=== PATIENT | male | born 1980 | race Caucasian/White ===

== ENCOUNTER 2019-10-20 09:37 | Emergency (ER) | payer OTHER, MEDICAID, SELFPAY ==
[2019-10-20 09:57] VITALS: BP 170/100; PULSE 84; RESP 16; TEMP 36.2; O2SAT 99; BMI 24.8
[2019-10-20] MEDS: LORazepam 0.5 MG TABLET 2 MG PO (11:19)
--- NOTE | 2019-10-20 11:32 | ED.PSYCH ---
HPI - Psych General Chief Complaint: Psychiatric Symptoms Stated Complaint: break down right now Time Seen by Provider: 10/20/19 11:12 Source: patient and family Mode of arrival: Family Vehicle History of Present Illness HPI Narrative: The patient is a 39-year-old male who came into the emergency department to be evaluated for depression. The patient states that he has been hearing voices that intermittently telling to hurt himself but also inform him to hurt others. The only person he wants to hurt is a friend that he thought was a friend in [place]. He has been seen by the psychiatrist before and was thought to be bipolar but no one has told him that he is definitely bipolar. The patient 1 week ago used methamphetamine. He does not report using any other drugs. He does not drink alcohol or smoke cigarettes. 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 He has no history of diabetes mellitus congenital heart disease or asthma. He states that intermittently he has thoughts of suicide in harming himself but has no specific plan. The patient's father committed suicide on October 13. He does not want to believe that his dad hurt himself. He states that he has low energy and no ambition. He has difficulty sleeping at night and is unable to fall asleep and then suddenly wakes up around 4 5:00 a.m. in the morning. He feels exhausted when he wakes up and that he has not rested when sleeping. He has been anorexic and has had a poor appetite. Related Data Previous Rx's Medication Instructions Recorded [id number] 4 drp OTIC QID #10 ml 03/18/16 lorazepam [Ativan] 0.5 mg PO TID PRN #20 tab 10/20/19 Allergies Allergy/AdvReac Type Severity Reaction Status Date / Time No Known Drug Allergies Allergy Verified 10/20/19 11:19 Review of Systems Review of Systems Narrative: All review of systems were negative except for those mentioned in the history of present illness. Patient History Social History Smoking Status: Former smoker Smoking Status: Former smoker tobacco type: cigarettes alcohol intake frequency: 0-2 drinks per day Substance Use Type: former substance user, marijuana and methamphetamine Exam Narrative Exam Narrative: PHYSICAL EXAM: CONSTITUTIONAL: Awake, Alert, Oriented, Coherent, Cooperative in NAD. Does not appear toxic or ill. He appears mildly agitated and was administered 2 mg of Ativan orally. HEAD: AT/NC EENT: PERRL, FROM of eyes, no discharge, Oral mucosa is moist and pink, posterior pharynx is without erythema or exudate. NECK: Supple, no obvious JVD, Trachea is midline without stridor, no palpable LN or masses. SPINE: No gross deformity, no palpable tenderness of the cervical, thoracic, lumbar or sacral spine. No CVA tenderness. THORAX: No deformity, retractions, chest wall tenderness, subcutaneous air or crepitice. LUNGS: Clear with symmetrical breath sounds without respiratory distress HEART: Normal heart tones, regular rhythm and rate without murmur. ABDOMEN: Soft, non-tender, normal bowel sounds without guarding, rebound, rigidity or palpable mass or organomegaly. EXTREMITIES: No edema, cyanosis, deformity or tenderness. SKIN: No rash, bruising, petechiae or purpura. NEURO: Awake, alert, oriented, conversive, cranial nerves II-XII are symmetrical and normal, moves all 4 extremities and is ambulatory Initial Vital Signs Initial Vital Signs: Vital Signs Temperature 97.2 F L 10/20/19 09:57 Pulse Rate 84 10/20/19 09:57 Respiratory Rate 16 10/20/19 09:57 Blood Pressure 170/100 H 10/20/19 09:57 Pulse Oximetry 99 10/20/19 09:57 Course Course Course Narrative: 1338 the patient was evaluated by the social service team here and feels that the patient is appropriate to go home on a safety plan. His mother feels as though she is able to take care of him. He does not have any plans on harming himself or harming anybody else. He is receptive to obtaining counseling as an outpatient. He will receive BHI P through his family physician and will be given the information for OT. He will be discharged. Orders Ordered: Discontinued Medications Lorazepam (Ativan) 2 mg PO NOW ONE Stop: 10/20/19 11:13 Last Admin: 10/20/19 11:19 Dose: 2 mg Documented by: ANURADHA Vital Signs Vital signs: Vital Signs - 8 hr 10/20/19 09:57 10/20/19 13:30 Temperature 97.2 F L Pulse Rate 84 86 Respiratory Rate 16 16 Blood Pressure 170/100 H Blood Pressure [Left Arm] 144/70 H Pulse Oximetry 99 98 MDM - Psych Lab Data Result diagrams: 10/20/19 11:27 10/20/19 11:27 Labs: Lab Results 10/20/19 10/20/19 10/20/19 Range/Units 11:27 11:27 11:27 WBC 8.1 (4.5-11.0) X10^3/uL RBC 5.22 (4.5-5.9) X10^6/uL Hgb 15.9 (13.5-17.5) g/dL Hct 45.8 (41-53) % MCV 87.7 (80-100) fL MCH 30.4 (26-34) PG MCHC 34.7 (30-36) % RDW 13.6 (11.6-14.8) % Plt Count 235 (150-400) X10^3/uL Neut % (Auto) 59.2 (50-75) % Lymph % (Auto) 27.6 (25-40) % Hubbard % (Auto) 10.3 (3-14) % Eos % (Auto) 2.0 (2-4) % Baso % (Auto) 0.9 (0-2) % Neut # (Auto) 4800 (5384-0523) /uL Lymph # (Auto) 2200 (5585-9289) /uL Hubbard # (Auto) 800 (0-900) /uL Eos # (Auto) 200 (0-450) /uL Baso # (Auto) 100 (0-100) /uL Sodium 137 (137-145) mmol/L Potassium 4.4 (3.4-5.1) mmol/L Chloride 103 (98-107) mmol/L Carbon Dioxide 23 (22-32) mmol/L BUN 17 (9-20) mg/dL Creatinine 0.96 (0.66-1.25) mg/dL Estimated GFR > 60.0 (>60) mL/min BUN/Creatinine Ratio 17.7 (6-22) Glucose 104 H (70-100) mg/dL Calcium 9.8 (8.4-10.2) mg/dL Total Bilirubin 0.8 (0.2-1.3) mg/dL AST 35 (17-59) IU/L ALT 64 H (<50) IU/L Alkaline Phosphatase 103 (38-126) U/L Total Protein 8.4 H (6.3-8.2) g/dL Albumin 4.9 (3.5-5.0) g/dL Globulin 3.5 (1.7-4.1) g/dL Albumin/Globulin Ratio 1.4 (1.0-2.8) TSH 1.31 (0.47-4.68) uIU/mL Salicylates < 1.0 (<20) mg/dL U Opiates 300ng/mL cut (Negative) Ur Oxycodone Screen (Negative) Urine Methadone Screen (Negative) Acetaminophen < 10 L (10-30) ug/mL Ur Barbiturates Screen (Negative) U Tricyclic Antidepress (Negative) Ur Phencyclidine Scrn (Negative) Ur Amphetamines Screen (Negative) U Methamphetamines Scrn (Negative) Ur MDMA Scrn (Ecstasy) (Negative) U Benzodiazepines Scrn (Negative) Urine Cocaine Screen (Negative) U Marijuana (THC) Screen (Negative) Ethyl Alcohol < 10 ( - 10) mg/dL 10/20/19 Range/Units 11:49 WBC (4.5-11.0) X10^3/uL RBC (4.5-5.9) X10^6/uL Hgb (13.5-17.5) g/dL Hct (41-53) % MCV (80-100) fL MCH (26-34) PG MCHC (30-36) % RDW (11.6-14.8) % Plt Count (150-400) X10^3/uL Neut % (Auto) (50-75) % Lymph % (Auto) (25-40) % Hubbard % (Auto) (3-14) % Eos % (Auto) (2-4) % Baso % (Auto) (0-2) % Neut # (Auto) (1165-9535) /uL Lymph # (Auto) (6409-1211) /uL Hubbard # (Auto) (0-900) /uL Eos # (Auto) (0-450) /uL Baso # (Auto) (0-100) /uL Sodium (137-145) mmol/L Potassium (3.4-5.1) mmol/L Chloride (98-107) mmol/L Carbon Dioxide (22-32) mmol/L BUN (9-20) mg/dL Creatinine (0.66-1.25) mg/dL Estimated GFR (>60) mL/min BUN/Creatinine Ratio (6-22) Glucose (70-100) mg/dL Calcium (8.4-10.2) mg/dL Total Bilirubin (0.2-1.3) mg/dL AST (17-59) IU/L ALT (<50) IU/L Alkaline Phosphatase (38-126) U/L Total Protein (6.3-8.2) g/dL Albumin (3.5-5.0) g/dL Globulin (1.7-4.1) g/dL Albumin/Globulin Ratio (1.0-2.8) TSH (0.47-4.68) uIU/mL Salicylates (<20) mg/dL U Opiates 300ng/mL cut Negative (Negative) Ur Oxycodone Screen Negative (Negative) Urine Methadone Screen Negative (Negative) Acetaminophen (10-30) ug/mL Ur Barbiturates Screen Negative (Negative) U Tricyclic Antidepress Negative (Negative) Ur Phencyclidine Scrn Negative (Negative) Ur Amphetamines Screen Negative (Negative) U Methamphetamines Scrn Negative (Negative) Ur MDMA Scrn (Ecstasy) Negative (Negative) U Benzodiazepines Scrn Negative (Negative) Urine Cocaine Screen Negative (Negative) U Marijuana (THC) Screen Positive H (Negative) Ethyl Alcohol ( - 10) mg/dL Point of Care Testing Glucose POC 85 Urine Dip Bedside Urine Glucose Negative Bedside Urine Bilirubin - Negative Bedside Urine Ketone - Negative Urine Specific [place] 1.015 Bedside Urine Occult Blood - Negative Bedside Urine pH 6.0 Bedside Urine Protein - Negative Bedside Urine Urobilinogen - Negative Bedside Urine Nitrite - Negative Bedside Urine Leukocytes - Negative Esterase Discharge Plan Departure Patient Disposition: Home Clinical Impression: Suicidal ideation Depression Qualifiers: Depression Type: reactive depression Qualified Code(s): F32.9 - Major depressive disorder, single episode, unspecified Discharge Date/Time: 10/20/19 13:57 Instructions: DI for Depression -- Adult Activity Restrictions/Additional Instructions: 1. Follow-up with Dr. Galvan to receive BHIP 2,. If any problems develop or your depression gets worse call OT for assistance 3. If the depression suddenly gets worse or out of control and you feel like you want to harm yourself or harm someone else return to the emergency department. 4. You and your family must lockup any objects that you may use to harm herself such as nods and guns and any other instruments. 5. For acute anxiety or agitation take the Ativan as prescribed; 0.5 mg three times per day. Prescriptions: New lorazepam [Ativan] 0.5 mg tablet 0.5 mg PO TID PRN (Reason: agitation) Qty: 20 RF: 0 No Action aubxcyos-iqlevoaqk-OP 10 ML drops,suspension 4 drp OTIC QID Qty: 10 RF: 0
[2019-10-20 11:41] LABS: Add Manual Diff / Slide Review NO; Basophils Absolute Auto 100 /uL (0-100); Basophils Percent Auto 0.9 % (0-2); Eosinophils Absolute Auto 200 /uL (0-450); Hematocrit 45.8 % (41-53); Hemoglobin 15.9 g/dL (13.5-17.5); Lymphocytes Absolute Auto 2200 /uL (1100-4500); Lymphocytes Percent Auto 27.6 % (25-40); Mean Corpuscular HGB Conc 34.7 % (30-36); Mean Corpuscular Hemoglobin 30.4 PG (26-34); Mean Corpuscular Volume 87.7 fL (80-100); Monocytes Absolute Auto 800 /uL (0-900); Monocytes Percent Auto 10.3 % (3-14); Neutrophils Absolute Auto 4800 /uL (1500-7000); Neutrophils Percent Auto 59.2 % (50-75); Platelet Count 235 X10^3/uL (150-400); Red Blood Cell Count 5.22 X10^6/uL (4.5-5.9); Red Cell Distribution Width 13.6 % (11.6-14.8); White Blood Cell Count 8.1 X10^3/uL (4.5-11.0)
[2019-10-20 11:56] LABS: Acetaminophen < 10 ug/mL (10-30); Alanine Aminotransferase 64 IU/L (<50); Albumin 4.9 g/dL (3.5-5.0); Albumin Globulin Ratio 1.4 (1.0-2.8); Alkaline Phosphatase 103 U/L (38-126); Aspartate Aminotransferase 35 IU/L (17-59); BUN Creatinine Ratio 17.7 (6-22); Bilirubin Total 0.8 mg/dL (0.2-1.3); Blood Urea Nitrogen 17 mg/dL (9-20); Calcium 9.8 mg/dL (8.4-10.2); Carbon Dioxide 23 mmol/L (22-32); Chloride 103 mmol/L (98-107); Estimated Glomerular Filt Rate > 60.0 mL/min (>60); Ethanol (ETOH) < 10 mg/dL; Globulin 3.5 g/dL (1.7-4.1); Glucose 104 mg/dL (70-100); HEMOLYSIS < 15 (0-50); Potassium 4.4 mmol/L (3.4-5.1); Salicylate < 1.0 mg/dL (<20); Sodium 137 mmol/L (137-145); Total Protein 8.4 g/dL (6.3-8.2)
[2019-10-20 12:26] LABS: Thyroid Stimulating Hormone 1.31 uIU/mL (0.47-4.68)
[2019-10-20 12:40] LABS: UR Morphine/Opiate cutoff 300 Negative (Negative); Ur Creatinine Normal (Normal); Ur Specific Gravity Normal (Normal); Urine Amphetamines Negative (Negative); Urine Barbiturates Negative (Negative); Urine Benzodiazepines Negative (Negative); Urine Cocaine Negative (Negative); Urine MDMA Negative (Negative); Urine Methadone Negative (Negative); Urine Methamphetamines Negative (Negative); Urine Oxycodone Negative (Negative); Urine Phencyclidine Negative (Negative); Urine Tetrahydrocannabinol Positive (Negative); Urine Tricyclic Antidepressant Negative (Negative); Urine pH Normal (Normal)
--- NOTE | 2019-10-20 12:59 | CM.SWNOTE ---
Emergency Department Social Work ED Psychiatric Symptoms Assessment Start: 10/20/19 09:56 Freq: Status: Active Protocol: Document 10/20/19 10:06 RLS (Rec: 10/20/19 10:12 RLS [id number]) Psychiatric Symptoms Assessment Symptoms/Complaint Feels Depressed Onset this week Duration Getting Worse History Of Same Yes Context Not Taking Psychiatric Medications Worsens With Nothing Associated Psychiatric Symptoms Auditory Hallucinations, Depression,Racing Thoughts Associated Symptoms Insomnia Details of Plan only plan is to harm the other person is to use a chain saw and cut arms off the person. reports he is mad at the person. he is depressed. no suicidal thoughts Level of Consciousness Alert,Appropriate,Awake, Follows Commands Patient Orientation Name,Age,Birthday,Month,Date, Year,Day of Week,Place, Situation Patient Behavior/Mood Cooperative Ability to Follow Directions Excellent Patient Cognition Impaired No Affect Description Depressed,Relaxed Patient Appearance Well Groomed Hallucination Type Auditory Delusion Description Not Present Thought Process: Normal Depressive Symptoms Difficulty Concentrating, Difficulty Sleeping,Difficulty Making Decisions,Hopelessness ,Insomnia,Unhappiness Major Depressive Episode Yes Feelings of Hopelessness Yes Suicidal Ideation None,Harm to Others Suicide Plan No Plan Homicidal Ideation Harm to Others Homicidal Plan see above. pt has no car to travel to [place] to harm this person Nausea/Vomiting None METAL BONDING ASSEMBLER - Hospital Aide Assessment Start: 10/20/19 12:14 Freq: Status: Active Protocol: Document 10/20/19 12:15 [facility] (Rec: 10/20/19 12:46 [facility] [id number]) METAL BONDING ASSEMBLER/Hospital Aide Assessment Start date 10/20/19 Visit Start Time 10:30 End date 10/20/19 Visit End Time 12:00 Total time Care Management spent on 90 patient visit-in minutes Presenting Problem Patient presents insomnia and hearing voices. Precipitating Event(s) Patient discontinued use of meth and marijuana 3 weeks ago . Patient's father committed suicide 1 week ago. Current Behavioral Health Provider(s) None current Include Facility, Provider, Ph. # Psych. Hx Mental Health and Chemical Patient has a diagnosis of Dependency Biploar, has not had any medication for this since 2014 . Patient used meth for a year between 2013 and 2014, discontinued use of meth between 2015-June 2019, relapsed in June 2019, and discontinued use of meth 3 weeks ago. Patient describes discontinuing use of marijuana 3 weeks ago. Family Hx of Behavioral Abuse None reported. Psychiatric Hospitalizations (date(s)/ Patient denies previous location) psychiatric hospitalization. Support System(s) Patient was brought in by mother and brother. Patient lives with mother and brother. Patient and family are actively involved in [facility] , and have many people from their mosque community who have offered and given support . 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 Legal Matters - Outstanding Issues Patient reports signficant credit card debt from recent meth relapse Orientation (Person/Place/Time) Oriented to person time and place. Affect Appropriate for context. Calm and cooperative throughout interactions. Thought Content - Specify/Describe Patient described hearing Obsessions, Delusions, Hallucinations voices. Patient described a former roommate who he used to use meth with as communicating with him telepathically. Patient states that his former roommate was telling him to do things that were dangerous and could hurt other people such as drive recklessly. Patient continued to state that the voices were trying to make [him] do things that [ he] doesn't want to do and that he was getting angry. Patient stated that he had no want to harm/kill himself or anyone else, but was worried that once he got angry he would not be able to control it. Thought Processes (Lfvmkcm-Tydbzsrk-Hxud Coherent and goal directed Fogvjsyz-Jwobgaya-Yrphkedhjy- Bbafxutxgklkcf-Drkqgwh-Rxerufquhcdj- Thought Blocking) Speech (Qwsvkq-Xqeh-Kyqenzh-Rapid-Soft- Normal Loud-Pressured) Motor (Frihzq-Kirmdjptp-Dbfg-Other) Normal Insight (Present-Partially Present- Impaired Impaired) Judgement (Intact-Impaired) Impaired. Impulse Control (Adequate-Impaired) Impaired. Memory (Jlcxeliet-Cdghfg-Artpwx, Intact Impaired-Intact) Concentration (Intact-Impaired) Impaired, Patient states he had been having difficulty sleeping and reports difficultly maintianing focus. Attention (Intact-Impaired) Intact Behavior (Appropriate-Inappropriate) Appropriate Additional Comment Patient did experience an escalation when inpatient hospitalization was recognized and admitted to feeling an increase in his level of anxiety. Welcomed and responded well immediately to anti-anxiety medication. Suicidal Ideation (Plan) No Homicidal Ideation (Plan) No Comment Admits to destructive thoughts towards himself and others. Patient acknowledges that his destructive thoughts toward others come from a place of anger, and said that he would never hurt anyone. Patient admits thinking about wanting to be but denies any plan or thoughts of killing himself. Intervention METAL BONDING ASSEMBLER assessment- patient has experienced the recent suicide of his father, recent discontinuation of use of meth and marijuana and is currently hearing voices that are instructing patient to do things that patient states he does not want to do. Patient has dx of Bipolar, and has not had medication for this since 2013. Patient is currently living with mother, who expressed that she doesn't feel that she is able to keep him safe at home. Mother said there were guns in the home, and all but one were locked up , and did not express willingness to put the gun that was not locked into the safe. METAL BONDING ASSEMBLER suggested inpatient mental health for stabilization, medication, and group. Family and patient agreeable to plan. RA Plan Seeking inpatient stabilization.
[2019-10-20 13:30] VITALS: BP 144/70; PULSE 86; RESP 16; O2SAT 98
--- NOTE | 2019-10-20 13:41 | PC.NURSE ---
Family at bedside.
--- NOTE | 2019-10-20 13:44 | PC.NURSE ---
Patient is talking with family.
--- NOTE | 2019-10-20 13:46 | PC.NURSE ---
Family is with patient. Patient doesn't need anything at this time.
--- NOTE | 2019-10-20 13:47 | CM.SWNOTE ---
CRYPTOLOGIC TECHNICIAN TECHNICAL Note Patient agreeable to CRYPTOLOGIC TECHNICIAN TECHNICAL calling inpatient hospitals to find bed. [facility] in [place] had an available bed. Patient agreeable to care at [facility] for inpatient mental health stabilization. Current Patient and family grab CRYPTOLOGIC TECHNICIAN TECHNICALMiroslava Jarrell and discuss wanting to leave the ED and not do inpatient stabilization. Patient and mother stated multiple times that being in the ED was too much, and patient insisted that he was not hearing the voices. Patient said he felt better following discussion and a blessing from two of his priests and mother states she felt safe caring for patient at home until patients appt. with PCP on 10/23. CRYPTOLOGIC TECHNICIAN TECHNICALMiroslava Jarrell and STERLING Prince discussed safety planning with Patient and mother. director of enrollment discussed that family had recently endured a signficant trauma, and that it is not uncommon for strong thoughts to manifest suddenly. director of enrollment assessed for gun risk and discussed locking up the gun that was not in the safe. Mother said she would do this. director of enrollment assessed for sharp objects and other things that could be a danger. During this assessment, mother states with a smile you mean like all of our machetes? CRYPTOLOGIC TECHNICIAN TECHNICAL reminded family that because of the recent by suicide of patient's father, it is very important to take extra precautions with all potential weapons. Mother asked if patient could be written a prescription for Ativan, as this medication was helpful today in ED for director of enrollment spoke with Dr. Ruffin about this and expressed belief that this would help him stay safe at home. director of enrollment discussed BHIP, and patient expressed interest. director of enrollment discussed having patient and his mother mention BHIP in meeting with PCP on 10/23. A reminder of this will be added to Dr. Ruffin's discharge note. director of enrollment discussed [facility] and [facility] crisis line, and gave patient's mother the phone number. Patient's mother programmed number into phone while director of enrollment were in room. Patient denies any thoughts of wanting to harm or kill himself or others. Patient said he likes to go for walks in nature to help himself de-escalate should strong feelings or thoughts arise. Patient will be discharged to care of mother 10/20/19. STERLING Soto
[2019-10-20 13:56] VITALS: BP 137/67; PULSE 86; RESP 16; TEMP 36.4; O2SAT 98
== END 2019-10-20 13:57 | disposition home or self-care (01) ==
PROVIDERS: Emergency Provider Emergency Medicine
DX: R45.851 Suicidal ideations (principal); F32.9 Major depressive disorder, single episode, unspecified
CPT/HCPCS: 80053; 80305; 80320; 80329; 81003; 82962; 84443; 85025; 99284; G0480

== ENCOUNTER → 2019-10-23 15:22 | Outpatient (CLI) | payer OTHER, MEDICAID, SELFPAY ==
[2019-10-23 18:54] LABS: UR Morphine/Opiate cutoff 300 Negative (Negative); Ur Creatinine Normal (Normal); Ur Specific Gravity Normal (Normal); Urine Amphetamines Negative (Negative); Urine Barbiturates Negative (Negative); Urine Benzodiazepines Negative (Negative); Urine Cocaine Negative (Negative); Urine MDMA Negative (Negative); Urine Methadone Negative (Negative); Urine Methamphetamines Negative (Negative); Urine Oxycodone Negative (Negative); Urine Phencyclidine Negative (Negative); Urine Tetrahydrocannabinol Positive (Negative); Urine Tricyclic Antidepressant Negative (Negative); Urine pH Normal (Normal)
== END ==
PROVIDERS: Visit Provider Family Medicine
DX: F15.10 Other stimulant abuse, uncomplicated (principal)
CPT/HCPCS: 80305

== ENCOUNTER → 2022-08-25 11:33 | Outpatient (CLI) | payer OTHER, MEDICAID, SELFPAY ==
[2022-08-25 13:58] LABS: Hemoglobin A1C% w Est Avg Glu 5.3 % (4.0-6.0)
[2022-08-25 14:06] LABS: Alanine Aminotransferase 117 IU/L (<50); Alkaline Phosphatase 102 U/L (38-126); Aspartate Aminotransferase 50 IU/L (17-59); BUN Creatinine Ratio 9.3 (6-22); Bilirubin Total 0.8 mg/dL (0.2-1.3); Blood Urea Nitrogen 12 mg/dL (9-20); Calcium 9.8 mg/dL (8.4-10.2); Carbon Dioxide 27 mmol/L (22-32); Chloride 101 mmol/L (98-107); Cholesterol 221 mg/dL (140-199); Estimated Glomerular Filt Rate > 60 mL/min (>60); Glucose 87 mg/dL (70-100); HDL Cholesterol 40 mg/dL (40-60); HEMOLYSIS < 15 (0-50); Potassium 4.7 mmol/L (3.4-5.1); Sodium 142 mmol/L (137-145); Total Protein 8.9 g/dL (6.3-8.2)
[2022-08-25 14:08] LABS: LDL Cholesterol Calculated 135 mg/dL (<100); Triglycerides 231 mg/dL (35-150)
[2022-08-27 16:37] LABS: Albumin Globulin Ratio 1.3 (1.0-2.8); Globulin 3.9 g/dL (1.7-4.1)
== END ==
PROVIDERS: PCP Family Medicine; Referring Provider Family Medicine; Visit Provider Family Medicine
DX: F19.10 Other psychoactive substance abuse, uncomplicated (principal); F32.9 Major depressive disorder, single episode, unspecified; E78.5 Hyperlipidemia, unspecified; R73.9 Hyperglycemia, unspecified
CPT/HCPCS: 36415; 80053; 80061; 83036

== ENCOUNTER → 2022-10-08 13:17 | Outpatient (CLI) | payer OTHER, MEDICAID, SELFPAY ==
[2022-10-08 14:06] LABS: Alanine Aminotransferase 94 IU/L (<50); Albumin 4.7 g/dL (3.5-5.0); Albumin Globulin Ratio 1.2 (1.0-2.8); Alkaline Phosphatase 87 U/L (38-126); Aspartate Aminotransferase 41 IU/L (17-59); BUN Creatinine Ratio 11.5 (6-22); Bilirubin Total 0.7 mg/dL (0.2-1.3); Blood Urea Nitrogen 13 mg/dL (9-20); Carbon Dioxide 24 mmol/L (22-32); Chloride 100 mmol/L (98-107); Estimated Glomerular Filt Rate > 60 mL/min (>60); Globulin 3.9 g/dL (1.7-4.1); Glucose 112 mg/dL (70-100); HEMOLYSIS < 15 (0-50); Sodium 135 mmol/L (137-145); Total Protein 8.6 g/dL (6.3-8.2)
== END ==
PROVIDERS: PCP Family Medicine; Referring Provider Family Medicine; Visit Provider Family Medicine
DX: I10 Essential (primary) hypertension (principal)
CPT/HCPCS: 36415; 80053

== ENCOUNTER → 2023-08-20 11:07 | Outpatient (CLI) | payer OTHER, MEDICAID, SELFPAY | PROVIDERS: PCP Family Medicine; Visit Provider Nurse Practitioner Family | DX: T14.8XXA Other injury of unspecified body region, initial encounter (principal) | CPT/HCPCS: 87070; 87075; 87077; 87186; 87205 ==

== ENCOUNTER → 2024-04-25 11:29 | Outpatient (CLI) | payer OTHER, MEDICAID, SELFPAY ==
[2024-04-25 12:26] LABS: Alanine Aminotransferase 65 IU/L (<50); Albumin 4.8 g/dL (3.5-5.0); Albumin Globulin Ratio 1.4 (1.0-2.8); Alkaline Phosphatase 106 U/L (38-126); Aspartate Aminotransferase 35 IU/L (17-59); BUN Creatinine Ratio 9.8 (6-22); Bilirubin Total 0.7 mg/dL (0.2-1.3); Blood Urea Nitrogen 14 mg/dL (9-20); Calcium 9.7 mg/dL (8.4-10.2); Carbon Dioxide 19 mmol/L (22-32); Chloride 103 mmol/L (98-107); Cholesterol 203 mg/dL (140-199); Estimated Glomerular Filt Rate > 60 mL/min (>60); Globulin 3.4 g/dL (1.7-4.1); Glucose 96 mg/dL (70-100); HDL Cholesterol 40 mg/dL (40-60); HEMOLYSIS < 15 (0-50); LDL Cholesterol Calculated 113 mg/dL (<100); Sodium 135 mmol/L (137-145); Total Protein 8.2 g/dL (6.3-8.2); Triglycerides 248 mg/dL (35-150)
[2024-04-25 12:42] LABS: Hemoglobin A1C% w Est Avg Glu 4.9 % (4.0-6.0)
== END ==
PROVIDERS: PCP Family Medicine; Referring Provider Family Medicine; Visit Provider Family Medicine
DX: I10 Essential (primary) hypertension (principal); E66.9 Obesity, unspecified
CPT/HCPCS: 36415; 80053; 80061; 83036

== ENCOUNTER → 2024-07-03 14:49 | Outpatient (CLI) | payer OTHER, MEDICAID, SELFPAY | PROVIDERS: PCP Family Medicine; Referring Provider Physician Assistant Medical; Visit Provider Physician Assistant Medical | DX: L72.3 Sebaceous cyst (principal) | CPT/HCPCS: 87070; 87075; 87205 ==

== ENCOUNTER → 2025-05-02 08:54 | Outpatient (CLI) | payer OTHER, SELFPAY ==
[2025-05-02 09:59] LABS: Hemoglobin A1C% w Est Avg Glu 5.2 % (4.0-6.0)
== END ==
PROVIDERS: PCP Family Medicine; Referring Provider Family Medicine; Visit Provider Family Medicine
DX: E66.9 Obesity, unspecified (principal)
CPT/HCPCS: 36415; 83036

== ENCOUNTER → 2025-06-29 08:46 | Outpatient (CLI) | payer OTHER, SELFPAY ==
[2025-06-29 09:36] LABS: Influenza A - CEPHEID Flu A NEGATIVE (NEGATIVE); Influenza B - CEPHEID Flu B NEGATIVE (NEGATIVE)
[2025-06-29 12:17] LABS: COVID-19 CEPHEID 4-PLEX PCR Negative (Negative)
== END ==
PROVIDERS: PCP Family Medicine; Visit Provider Nurse Practitioner Family
DX: R11.10 Vomiting, unspecified (principal)
CPT/HCPCS: 87637; 93010

== ENCOUNTER 2025-06-29 09:02 | Inpatient (IN) | payer OTHER, SELFPAY ==
[2025-06-29] VITALS (24 sets, daily range): BP systolic 124–182; BP diastolic 66–98; PULSE 90–144; RESP 14–40; TEMP 36.2–37.1; O2SAT 92–95; BMI 37.7; BMI 38.2
[2025-06-29] MEDS: ONDANSETRON 4 MG/2 ML INJ IV (09:11)
--- NOTE | 2025-06-29 09:11 | EKG_ITS ---
[address] [address] [address] [address] Test Date: 2025-06-29 Pat Name: Louis Oconnor Department: Room: Gender: Male Demand Generation Manager: OSBALDO : 1980 Requested By: Order Number: [id number] Reading MD: Tr Vasquez MD Measurements Intervals [place] Rate: 120 P: 29 AR: 128 QRS: 8 QRSD: 96 T: 136 QT: 336 QTc: 474 Interpretive Statements Sinus tachycardia Possible Left atrial enlargement Left ventricular hypertrophy with repolarization abnormality ( R in aVL ) Electronically Signed On 06-29-2025 9:29:19 PST by rT Vasquez MD
--- NOTE | 2025-06-29 09:15 | DI.CT.S_ITS ---
PROCEDURE: CT ABDOMEN PELVIS W CON INDICATIONS: Nausea vomiting, diarrhea, abdominal pain TECHNIQUE: After the administration of intravenous contrast, axial sections acquired from the lung bases to the pubic symphysis. Coronal and sagittal reformats were performed. For radiation dose reduction, the following was used: automated exposure control, adjustment of mA and/or kV according to patient size. COMPARISON: None. FINDINGS: Lower Chest: Small bibasilar pleural effusions ABDOMEN: Liver: The liver is diffusely decreased in attenuation without focal mass lesion. Small amount of perihepatic free fluid Gallbladder: No radiopaque gallstones or wall thickening. Biliary ducts: No biliary dilation. Pancreas: Pancreatic swelling and edema involving the pancreatic tail with peripancreatic unorganized fluid Spleen: Size is within normal limits. Adrenal Glands: No adrenal nodules. Kidneys and Ureters: No hydronephrosis. No solid mass. No complex renal cystic lesion which requires follow up. Stomach and Bowel: Normal colonic caliber, without significant wall thickening. Peritoneum: No abnormal intraperitoneal fluid. No free air. Ventral Wall: No significant ventral hernia. Abdominal Nodes: No retroperitoneal or mesenteric adenopathy by size criteria. Vessels: Aorta and inferior vena cava are normal in size. PELVIS: Pelvic Organs: Unremarkable. Bladder: No bladder wall thickening, accounting for underdistention. Pelvic Nodes: No enlarged lymph nodes. Miscellaneous: No inguinal hernias are seen. Moderate free fluid in pelvis Bones: No aggressive osseous abnormality. IMPRESSION: Acute pancreatitis with moderate free fluid in the pelvis. No organized pseudocyst. Approved by: Oscar Ramirez M.D. on 06/29/2025 at 9:30
--- NOTE | 2025-06-29 09:18 | ED_ITS ---
HPI - Abdominal Pain General Chief Complaint: Abdominal Pain Stated Complaint: [facility]: vomiting 3days, dehydrated, dark urine Time Seen by Provider: 06/29/25 09:09 Source: patient Mode of arrival: Ambulatory History of Present Illness HPI narrative: 45 years old male with history of hypertension came in today complaining of persistent nausea vomiting since 06/26/2025 and diarrhea in the last 2 days with generalized abdominal pain, decreased oral intake, decreased urine output, dark urine, generalized weakness. He denied any fever, runny nose, sore throat, coughing, chest pain, shortness of breath, dysuria, blood in the urine, dizziness, loss of consciousness, black stool, blood in the stool, previous abdominal surgery. He denied drinking alcohol but Vaping marijuana. He denied current abdominal pain. Related Data Home Medications ?Medication ?Instructions ?Recorded ?Confirmed hydroxyzine pamoate 25 mg capsule 25 mg PO BID 4 06/29/25 olanzapine 15 mg tablet 15 mg PO ONCE PM 07/03/24 fluoxetine 20 mg tablet 20 mg PO DAILY 12/11/2406/09 Previous Rx's ?Medication ?Instructions ?Recorded fluoxetine 20 mg capsule See Rx Instructions .Route 0 12/27/22 .COMPLEX #90 caps buspirone 15 mg tablet 15 mg PO 3XD #270 tabs 05/09 trazodone 100 mg tablet See Rx Instructions .Route 1 08/27/23 .COMPLEX #90 tabs lisinopril 40 mg tablet See Rx Instructions .Route 0 12/10/24 .COMPLEX #90 tabs hydrochlorothiazide 25 mg tablet See Rx Instructions . Route 05/31/25 .COMPLEX #90 tabs Allergies Allergy/AdvReac Type Severity Reaction Status Date / Time No Known Drug Allergies Allergy Verified 06/29/25 09:08 Review of Systems Review of Systems Narrative: Positive for nausea vomiting diarrhea, abdominal pain, decreased urine output, decreased oral intake, generalized weakness. Negative for fever, runny nose, sore throat, coughing, dizziness, loss of consciousness, chest pain, shortness of breath, black stool, blood in the stool. Patient History Medical History (Updated 06/29/25 @ 11:17 by Nazanin Trevizo MD) Primary hypertension Substance abuse Family History Brother Diabetes mellitus Social History Smoking Status: Unknown if ever smoked Smoking Status: Unknown if ever smoked tobacco type: cigarettes alcohol intake frequency: 0-2 drinks per day Exam Narrative Exam Narrative: GENERAL: Alert awake. Appear weak. No acute distress. HEAD: Atraumatic. Normocephalic. NECK: Trachea midline. Non tender CARDIOVASCULAR: Tachycardia. Regular rhythm without murmurs, gallops, or rubs. RESPIRATORY: Clear to auscultation. Breath sounds equal bilaterally. No wheezes, rales, or rhonchi. GASTROINTESTINAL: Generalized mild tenderness on palpation abdomen without guarding or rebound or tenderness. Mild distention. EXTREMITIES: No edema or joint tenderness. BACK: Nontender without deformity or crepitance. No flank tenderness. NEURO: AOx3. SKIN: No rash or erythema of visible areas Initial Vital Signs Initial Vital Signs: Vital Signs Temperature 98.7 F 06/29/25 09:03 Pulse Rate 137 H 06/29/25 09:03 Respiratory Rate 14 06/29/25 09:03 Blood Pressure 169/98 H 06/29/25 09:03 Pulse Oximetry 95 06/29/25 09:03 Oxygen Delivery Method Room Air 06/29/25 09:03 Course Orders Ordered: ED Orders 06/29/25 09:02 ETOH [Ethanol (ETOH)] Stat 06/29/25 09:08 EKG-12 Lead Stat 06/29/25 09:15 CT abdomen pelvis w con Stat 06/29/25 09:25 Complete Blood Count AUTO DIFF Stat Comprehensive Metabolic Panel Stat Lipase Stat Magnesium Stat Sodium Chloride (Hypertonic Saline 3%) 100 mls @ 20 mls/hr IV NOW ONE Stop: 06/29/25 15:01 Last Admin: 06/29/25 10:22 Dose: 20 mls/hr Documented By: DIONNA Magnesium Sulfate (Magnesium Sulfate) 4 gm in 100 mls @ 25 mls/hr IV NOW ONE Stop: 06/29/25 14:01 Last Admin: 06/29/25 10:14 Dose: 25 mls/hr Documented By: DIONNA Co-signed By: SAUNDRA Ondansetron HCl (Ondansetron 4 Mg/2 Ml Inj) 4 mg IV NOW PRN PRN Reason: Nausea And Vomiting Last Admin: 06/29/25 09:11 Dose: 4 mg Documented By: RB Ondansetron HCl (Ondansetron 4 Mg Odt) 4 mg PO NOW PRN PRN Reason: Nausea And Vomiting Discontinued Medications Lactated Ringer's (Lactated Ringers) 1,000 mls @ 1,000 mls/hr IV BOLUS ONE Stop: 06/29/25 10:15 Last Infusion: 06/29/25 11:01 Dose: Infused Documented By: Admin: 06/29/25 09:30 Dose: 1,000 mls/hr Documented By: RB Sodium Chloride (Normal Saline 0.9%) 500 mls @ 1,000 mls/hr IV BOLUS ONE Stop: 06/29/25 10:32 Last Admin: 06/29/25 10:15 Dose: Not Given Documented By: SAUNDRA(2) Vital Signs Vital signs: Vital Signs - 8 hr 06/29/25 09:03 06/29/25 09:05 06/29/25 09:06 Temperature 98.7 F Pulse Rate 137 H 143 H 144 H Respiratory Rate 14 Blood Pressure 169/98 H Pulse Oximetry 95 95 94 Oxygen Delivery Method Room Air 06/29/25 09:06 06/29/25 09:30 06/29/25 09:30 Temperature Pulse Rate 111 H Respiratory Rate Blood Pressure 169/98 H 152/92 H Pulse Oximetry Oxygen Delivery Method 06/29/25 10:00 06/29/25 10:30 06/29/25 11:00 Temperature Pulse Rate 90 93 H 95 H Respiratory Rate 32 H 31 H 32 H Blood Pressure Pulse Oximetry 95 95 Oxygen Delivery Method MDM - Abdominal Pain Lab Data 06/29/25 09:25 06/29/25 09:25 Labs: Lab Results 06/29/25 06/29/25 Range/Units 09:02 09:25 WBC 29.3 H (4.5-11.0) X10^3/uL RBC 5.50 (4.5-5.9) X10^6/uL Hgb 15.8 (13.5-17.5) g/dL Hct 44.5 (41-53) % MCV 80.8 (80-100) fL MCH 28.7 (26-34) PG MCHC 35.5 (30-36) % RDW 13.8 (11.6-14.8) % Plt Count 262 (150-400) X10^3/uL Neut % (Auto) Not Reportable Lymph % (Auto) Not Reportable [place] % (Auto) Not Reportable Eos % (Auto) Not Reportable Baso % (Auto) Not Reportable Lymph # (Auto) Not Reportable [place] # (Auto) Not Reportable Baso # (Auto) Not Reportable Total Counted 100 Seg Neutrophils % 76.0 H (38-70) % Band Neutrophils % 10.0 H (3-7) % Lymphocytes % (Manual) 8.0 L (25-45) % Monocytes % (Manual) 6.0 (2-11) % Neutrophils # (Manual) 16732 H (5257-2783) /uL RBC Morphology Normal morphology Sodium 114 L* (137-145) mmol/L Potassium 3.6 (3.4-5.1) mmol/L Chloride 81 L (98-107) mmol/L Carbon Dioxide 21 L (22-32) mmol/L BUN 18 (9-20) mg/dL Creatinine 1.13 (0.66-1.25) mg/dL Estimated GFR > 60 (>60) mL/min BUN/Creatinine Ratio 15.9 (6-22) Glucose 140 H (70-99) mg/dL Calcium 7.5 L (8.4-10.2) mg/dL Magnesium 1.1 L (1.6-2.3) mg/dL Total Bilirubin 2.8 H (0.2-1.3) mg/dL AST 35 (17-59) IU/L ALT 30 (<50) IU/L Alkaline Phosphatase 67 (38-126) U/L Total Protein 7.8 (6.3-8.2) g/dL Albumin 4.2 (3.5-5.0) g/dL Globulin 3.6 (1.7-4.1) g/dL Albumin/Globulin Ratio 1.2 (1.0-2.8) Lipase 376 H (23-300) U/L Ethyl Alcohol < 10 (<10) mg/dL Imaging Data CT scan - abdomen/pelvis: Radiologist's Impression: PROCEDURE: CT ABDOMEN PELVIS W CON INDICATIONS: Nausea vomiting, diarrhea, abdominal pain TECHNIQUE: After the administration of intravenous contrast, axial sections acquired from the lung bases to the pubic symphysis. Coronal and sagittal reformats were performed. For radiation dose reduction, the following was used: automated exposure control, adjustment of mA and/or kV according to patient size. COMPARISON: None. FINDINGS: Lower Chest: Small bibasilar pleural effusions ABDOMEN: Liver: The liver is diffusely decreased in attenuation without focal mass lesion. Small amount of perihepatic free fluid Gallbladder: No radiopaque gallstones or wall thickening. Biliary ducts: No biliary dilation. Pancreas: Pancreatic swelling and edema involving the pancreatic tail with peripancreatic unorganized fluid Spleen: Size is within normal limits. Adrenal Glands: No adrenal nodules. Kidneys and Ureters: No hydronephrosis. No solid mass. No complex renal cystic lesion which requires follow up. Stomach and Bowel: Normal colonic caliber, without significant wall thickening. Peritoneum: No abnormal intraperitoneal fluid. No free air. Ventral Wall: No significant ventral hernia. Abdominal Nodes: No retroperitoneal or mesenteric adenopathy by size criteria. Vessels: Aorta and inferior vena cava are normal in size. PELVIS: Pelvic Organs: Unremarkable. Bladder: No bladder wall thickening, accounting for underdistention. Pelvic Nodes: No enlarged lymph nodes. Miscellaneous: No inguinal hernias are seen. Moderate free fluid in pelvis Bones: No aggressive osseous abnormality. IMPRESSION: Acute pancreatitis with moderate free fluid in the pelvis. No organized pseudocyst. Approved by: Oscar Ramirez M.D. on 06/29/2025 at 9:30 ECG Data Interpretation: EKG shows sinus tachycardia 120 beats per minute with inverted T-waves in 1, aVL, V2, V3. No prolonged QT. [facility] Narrative Medical decision making narrative: 45 years old male with history of hypertension came in today complaining of persistent nausea vomiting since 06/26/2025 and diarrhea in the last 2 days with generalized abdominal pain, decreased oral intake, decreased urine output, dark urine, generalized weakness. He denied any fever, runny nose, sore throat, coughing, chest pain, shortness of breath, dysuria, blood in the urine, dizziness, loss of consciousness, black stool, blood in the stool, previous abdominal surgery. He denied drinking alcohol but Vaping marijuana. He denied current abdominal pain. On exam showed Generalized mild tenderness on palpation abdomen without guarding or rebound or tenderness. Mild distention. His CV exam showed tachycardia without murmur. His lung exam was normal. He is alert oriented x4 without acute distress. His CBC showed WBC 29.3 otherwise normal CBC. His CMP shows sodium 114 chloride 81 bicarb 21 calcium 7.5 magnesium 1.1 total bilirubin 2.8 otherwise normal CMP. His lipase was 376. His CT scan abdomen and pelvis showed acute pancreatitis with moderate free fluid in the pelvis without organized pseudocyst. I discussed the case with our hospitalist and the patient was accepted to the hospital ICU. He was started on IV normal saline, 3% sodium chloride, magnesium supplement. Later I discussed the case with another hospitalist group and recommended transfer to higher level of care for severe hyponatremia, leukocytosis, pancreatitis. Discharge Plan Departure Patient Disposition: Admitted As Inpatient Clinical Impression: Acute hyponatremia, Hypomagnesemia, Hypocalcemia, Sinus tachycardia Admit Date/Time: 06/29/25 11:20 Admit Provider: Herrera Mcknight
[2025-06-29] MEDS: LACTATED RINGERS 1,000 ML 1000 ML IV (09:30)
[2025-06-29 09:39] LABS: Add Manual Diff / Slide Review YES; Hematocrit 44.5 % (41-53); Hemoglobin 15.8 g/dL (13.5-17.5); Mean Corpuscular HGB Conc 35.5 % (30-36); Mean Corpuscular Hemoglobin 28.7 PG (26-34); Mean Corpuscular Volume 80.8 fL (80-100); Platelet Count 262 X10^3/uL (150-400)
[2025-06-29 09:49] LABS: Magnesium 1.1 mg/dL (1.6-2.3)
[2025-06-29 09:50] LABS: Alanine Aminotransferase 30 IU/L (<50); Albumin 4.2 g/dL (3.5-5.0); Albumin Globulin Ratio 1.2 (1.0-2.8); Alkaline Phosphatase 67 U/L (38-126); Blood Urea Nitrogen 18 mg/dL (9-20); Calcium 7.5 mg/dL (8.4-10.2); Carbon Dioxide 21 mmol/L (22-32); Chloride 81 mmol/L (98-107); Estimated Glomerular Filt Rate > 60 mL/min (>60); Globulin 3.6 g/dL (1.7-4.1); Glucose 140 mg/dL (70-99); HEMOLYSIS 16 (0-50); Lipase 376 U/L (23-300); Potassium 3.6 mmol/L (3.4-5.1); Total Protein 7.8 g/dL (6.3-8.2)
[2025-06-29 09:50] LABS: Ethanol (ETOH) < 10 mg/dL (<10)
[2025-06-29 09:55] LABS: Sodium 114 mmol/L (137-145)
[2025-06-29] MEDS: MAGNESIUM SULFATE 4 GM/100 ML PIGGYBACK IV (10:14)
[2025-06-29 10:22] LABS: Band Neutrophils Percent 10.0 % (3-7); Lymphocytes Percent Manual 8.0 % (25-45); Monocytes Percent Manual 6.0 % (2-11); Neutrophils Absolute Manual 25198 /uL (3000-5900); RBC Morphology Normal Morphology; Segmented Neutrophils Percent 76.0 % (38-70); Total Cells Counted 100
[2025-06-29] MEDS: SODIUM CHLORIDE 3 % 100 ML 20 ML IV (10:22)
--- NOTE | 2025-06-29 13:56 | PM.HP.1 ---
History of Present Illness History of Present Illness Date Patient Seen: 06/29/25 Time Patient Seen: 14:10 Chief complaint: [facility]: vomiting 3days, dehydrated, dark urine Narrative: Patient was a 45-year-old male who presents with vomiting for 2 days. He was had some epigastric abdominal pain as well he had no diarrhea. He takes antipsychotics for hearing voices. He lives with his mother and Maurice. He denies a smoking or alcohol history. In the ED imaging indicated pancreatitis in his sodium was 113. He had no seizures, oral altered mental status. He was treated with hypertonic saline, approximately 60 mL. He was no history of pancreatitis. He denies anything else unusual going on recently. ED course: Hypertonic saline initiated, CT of the abdomen indicates pancreatitis without necrosis or fluid collection. Mg low PFSH Medical History Primary hypertension Substance abuse Family History Brother Diabetes mellitus Social History Smoking Status: Unknown if ever smoked Meds Home Medications and Allergies Home Medications ?Medication ?Instructions ?Recorded ?Confirmed ?Type fluoxetine 20 mg capsule See Rx Instructions .Route 12/27/22 06/29/25 Rx .COMPLEX #90 caps buspirone 15 mg tablet 15 mg PO 3XD #270 tabs 05/09/23 06/29/25 Rx hydroxyzine pamoate 25 mg capsule 25 mg PO BID 08/20/23 06/29/25 History trazodone 100 mg tablet See Rx Instructions .Route 06/27/24 06/29/25 Rx .COMPLEX #90 tabs olanzapine 15 mg tablet 15 mg PO ONCE PM 07/03/24 06/29/25 History lisinopril 40 mg tablet See Rx Instructions .Route 12/10/24 06/29/25 Rx .COMPLEX #90 tabs fluoxetine 20 mg tablet 20 mg PO DAILY 12/11/24 06/29/25 History hydrochlorothiazide 25 mg tablet See Rx Instructions .Route 05/31/25 06/29/25 Rx .COMPLEX #90 tabs Allergies Allergy/AdvReac Type Severity Reaction Status Date / Time No Known Drug Allergies Allergy Verified 06/29/25 09:08 Review of Systems Review of Systems Narrative: All else reviewed and otherwise unremarkable except as noted in the history and physical. Exam Vital Signs (past 8 hours): - 06/29/25 09:03 06/29/25 09:05 06/29/25 09:06 Temperature 98.7 F Pulse Rate 137 H 143 H 144 H Respiratory Rate 14 Blood Pressure 169/98 H Pulse Oximetry 95 95 94 Oxygen Delivery Method Room Air 06/29/25 09:06 06/29/25 09:30 06/29/25 09:30 Temperature Pulse Rate 111 H Respiratory Rate Blood Pressure 169/98 H 152/92 H Pulse Oximetry Oxygen Delivery Method 06/29/25 10:00 06/29/25 10:30 06/29/25 11:00 Temperature Pulse Rate 90 93 H 95 H Respiratory Rate 32 H 31 H 32 H Blood Pressure Pulse Oximetry 95 95 Oxygen Delivery Method 06/29/25 11:04 06/29/25 11:04 06/29/25 11:30 Temperature Pulse Rate 97 H 105 H Respiratory Rate 28 H 30 H Blood Pressure 163/85 H Pulse Oximetry 94 94 Oxygen Delivery Method 06/29/25 11:30 06/29/25 12:00 06/29/25 12:01 Temperature Pulse Rate 110 H Respiratory Rate 26 H Blood Pressure 181/98 H 169/88 H Pulse Oximetry 92 Oxygen Delivery Method 06/29/25 12:01 Temperature Pulse Rate 110 H Respiratory Rate 30 H Blood Pressure Pulse Oximetry 92 Oxygen Delivery Method Oxygen Delivery Method Room Air Narrative Exam Narrative: NAD, alert and oriented, fluent speech, calm. He was a slow speech with a slightly erratic heather. Normocephalic skull, EOMI, anicteric sclera, symmetric pupils. Oropharynx unremarkable, no droop. Neck supple, midline trachea, no adenopathy. Lungs clear, normal rate and effort. Heart regular, no murmur gallop or rub. Abdomen is soft, non distended and non tender. Extremities are free of edema. Skin is free of rash or lesions. Joints are not swollen or deformed. Judgment appears to be normal. Objective ECG Impression: ntervals [place] Rate: 120 P: 29 UT: 128 QRS: 8 QRSD: 96 T: 136 QT: 336 QTc: 474 Interpretive Statements Sinus tachycardia Possible Left atrial enlargement Left ventricular hypertrophy with repolarization abnormality ( R in aVL ) Imaging CT scan - abdomen: Radiologist's impression: Acute pancreatitis with moderate free fluid in the pelvis. No organized pseudocyst. Labs 06/29/25 09:25 06/29/25 09:25 Labs: Laboratory Results - last 24 hr 06/29/25 06/29/25 09:02 09:25 WBC 29.3 H RBC 5.50 Hgb 15.8 Hct 44.5 MCV 80.8 MCH 28.7 MCHC 35.5 RDW 13.8 Plt Count 262 Neut % (Auto) Not Reportable Lymph % (Auto) Not Reportable [place] % (Auto) Not Reportable Eos % (Auto) Not Reportable Baso % (Auto) Not Reportable Lymph # (Auto) Not Reportable [place] # (Auto) Not Reportable Baso # (Auto) Not Reportable Total Counted 100 Seg Neutrophils % 76.0 H Band Neutrophils % 10.0 H Lymphocytes % (Manual) 8.0 L Monocytes % (Manual) 6.0 Neutrophils # (Manual) 07616 H RBC Morphology Normal morphology Sodium 114 L* Potassium 3.6 Chloride 81 L Carbon Dioxide 21 L BUN 18 Creatinine 1.13 Estimated GFR > 60 BUN/Creatinine Ratio 15.9 Glucose 140 H Calcium 7.5 L Magnesium 1.1 L Total Bilirubin 2.8 H AST 35 ALT 30 Alkaline Phosphatase 67 Total Protein 7.8 Albumin 4.2 Globulin 3.6 Albumin/Globulin Ratio 1.2 Lipase 376 H Ethyl Alcohol < 10 Assessment & Plan Assessment & Plan narrative: 1. Hypovolemic hyponatremia, active. 2. Pancreatitis, active. 3. Ascites, active. 4. Severe leukocytosis without evidence of infection, likely Re active 2 pancreatitis. Active. Chronic medical problems include hypertension, obesity class 2, and depression, psychosis with auditory hallucinations. PLAN: -repeat sodium 116, stop hypertonic and start saline at 100 mL/hour with q.4 hours BMPs. -replete magnesium as needed. -blood cultures -monitor for fever -monitor calcium -monitor CBC Patient was full resuscitation Mother is proxy Anticipate over 2 midnights in the hospital, supports inpatient status. Time-Based Coding :: 40 min spent with patient and on the chart (including review of chart, obtaining history, exam, reviewing outside data, placing orders, documenting exam and treatment plan, and counseling patient) on 06/29. Quality MIPS - Admit I confirm the patient?s Advance Care Plan is present, Code status is documented, Surrogate decision maker is in patient?s record [If Yes, STOP here]: Yes [facility] - Meds 'Current medications' to include all prescriptions, [id number] products, herbals, cannabis/cannabidiol products, and vitamin/mineral/dietary (nutritional) supplements. I have utilized all available resources to obtain, update, or review the patient?s current medications. [If Yes, STOP here]: Yes
--- NOTE | 2025-06-29 14:07 | PC.ADMIT ---
.[id number] [facility] Admission Note: Pt arrived to room 230 in ICU at approximately 1340. A&Ox4, flat affect. Ambulatory SBA from stretcher to bed. Voided in urinal in bathroom, michael and clear. Denies pain, reports mild SOB. RR 25-35, O2 91-94% on RA. Oriented to room and call light. Care ongoing. The patient,Louis Oconnor,45 y/o, was given written information regarding hospital policies, unit procedures and contact persons. Patient's smoking status: Unknown if ever smoked. Vital Signs - 8 hr 06/29/25 09:03 06/29/25 09:05 06/29/25 09:06 Temperature 98.7 F Pulse Rate 137 H 143 H 144 H Respiratory Rate 14 Blood Pressure 169/98 H Pulse Oximetry 95 95 94 Oxygen Delivery Method Room Air 06/29/25 09:06 06/29/25 09:30 06/29/25 09:30 Temperature Pulse Rate 111 H Respiratory Rate Blood Pressure 169/98 H 152/92 H Pulse Oximetry Oxygen Delivery Method 06/29/25 10:00 06/29/25 10:30 06/29/25 11:00 Temperature Pulse Rate 90 93 H 95 H Respiratory Rate 32 H 31 H 32 H Blood Pressure Pulse Oximetry 95 95 Oxygen Delivery Method 06/29/25 11:04 06/29/25 11:04 06/29/25 11:30 Temperature Pulse Rate 97 H 105 H Respiratory Rate 28 H 30 H Blood Pressure 163/85 H Pulse Oximetry 94 94 Oxygen Delivery Method 06/29/25 11:30 06/29/25 12:00 06/29/25 12:01 Temperature Pulse Rate 110 H Respiratory Rate 26 H Blood Pressure 181/98 H 169/88 H Pulse Oximetry 92 Oxygen Delivery Method 06/29/25 12:01 Temperature Pulse Rate 110 H Respiratory Rate 30 H Blood Pressure Pulse Oximetry 92 Oxygen Delivery Method
[2025-06-29 14:11] LABS: Appearance Urine UA CLEAR; Bilirubin Urine UA NEGATIVE (NEGATIVE); Glucose Urine UA NEGATIVE (Negative); Ketones Urine UA 2+ (NEGATIVE); Leukocyte Esterase Urine UA NEGATIVE (NEGATIVE); Nitrite Urine UA NEGATIVE (Negative); Occult Blood Urine UA 2+ (Negative); Protein Urine UA 2+ (Negative); Specific Gravity Urine UA 1.010 (1.000-1.035); Urobilinogen Urine UA 1.0 E.U./dL (0.2); pH Urine UA 6.5 (4.5-8.0)
[2025-06-29 14:24] LABS: Blood Urea Nitrogen 17 mg/dL (9-20); Calcium 7.6 mg/dL (8.4-10.2); Carbon Dioxide 21 mmol/L (22-32); Chloride 81 mmol/L (98-107); Estimated Glomerular Filt Rate > 60 mL/min (>60); Glucose 138 mg/dL (70-99); HEMOLYSIS < 15 (0-50); Magnesium 2.6 mg/dL (1.6-2.3); Potassium 3.7 mmol/L (3.4-5.1)
[2025-06-29 14:28] LABS: Color Urine UA ORANGE
[2025-06-29 14:28] LABS: Sodium 116 mmol/L (137-145)
[2025-06-29 14:30] LABS: Culture Indicated Urine Cult Not Indicated
[2025-06-29] MEDS: SODIUM CHLORIDE 0.9% 1,000 ML 100 ML IV (14:44)
[2025-06-29 17:24] LABS: Blood Urea Nitrogen 16 mg/dL (9-20); Calcium 7.5 mg/dL (8.4-10.2); Carbon Dioxide 20 mmol/L (22-32); Chloride 83 mmol/L (98-107); Estimated Glomerular Filt Rate > 60 mL/min (>60); Glucose 125 mg/dL (70-99); HEMOLYSIS < 15 (0-50); Magnesium 2.3 mg/dL (1.6-2.3); Potassium 3.5 mmol/L (3.4-5.1)
[2025-06-29 17:32] LABS: Sodium 117 mmol/L (137-145)
[2025-06-29 19:26] LABS: MRSA (Nasal) PCR NOT DETECTED (Not Detect)
[2025-06-29] MEDS: PIPERACILLIN/TAZO 3.375 GM in SODIUM CHLORIDE 0.9% 100 ML IV ×2 (20:05→23:10)
[2025-06-29] MEDS: ONDANSETRON 4 MG ODT PO (20:13)
[2025-06-29 22:24] LABS: Blood Urea Nitrogen 16 mg/dL (9-20); Calcium 7.5 mg/dL (8.4-10.2); Carbon Dioxide 23 mmol/L (22-32); Chloride 85 mmol/L (98-107); Estimated Glomerular Filt Rate > 60 mL/min (>60); Glucose 127 mg/dL (70-99); HEMOLYSIS < 15 (0-50); Potassium 3.4 mmol/L (3.4-5.1)
[2025-06-29 22:25] LABS: Sodium 118 mmol/L (137-145)
[2025-06-30] VITALS (20 sets, daily range): BP systolic 108–152; BP diastolic 55–86; PULSE 67–110; RESP 18–28; TEMP 36.5–37.1; O2SAT 92–96
[2025-06-30] MEDS: SODIUM CHLORIDE 0.9% 1,000 ML 100 ML IV (00:49)
[2025-06-30 01:24] LABS: Blood Urea Nitrogen 16 mg/dL (9-20); Calcium 7.7 mg/dL (8.4-10.2); Carbon Dioxide 23 mmol/L (22-32); Chloride 85 mmol/L (98-107); Estimated Glomerular Filt Rate > 60 mL/min (>60); Glucose 129 mg/dL (70-99); HEMOLYSIS < 15 (0-50); Potassium 3.4 mmol/L (3.4-5.1)
[2025-06-30 01:26] LABS: Sodium 119 mmol/L (137-145)
[2025-06-30] MEDS: PIPERACILLIN/TAZO 3.375 GM in SODIUM CHLORIDE 0.9% 100 ML IV ×3 (06:32→22:51)
[2025-06-30 06:55] LABS: Blood Urea Nitrogen 16 mg/dL (9-20); Calcium 7.7 mg/dL (8.4-10.2); Carbon Dioxide 23 mmol/L (22-32); Chloride 88 mmol/L (98-107); Estimated Glomerular Filt Rate > 60 mL/min (>60); Glucose 124 mg/dL (70-99); HEMOLYSIS < 15 (0-50); Potassium 3.4 mmol/L (3.4-5.1); Sodium 121 mmol/L (137-145)
[2025-06-30 06:56] LABS: Alanine Aminotransferase 23 IU/L (<50); Albumin 3.3 g/dL (3.5-5.0); Albumin Globulin Ratio 1.2 (1.0-2.8); Alkaline Phosphatase 74 U/L (38-126); Globulin 2.8 g/dL (1.7-4.1); HEMOLYSIS < 15 (0-50); Total Protein 6.1 g/dL (6.3-8.2)
--- NOTE | 2025-06-30 07:55 | P.PN_ITS ---
Subjective Subjective Interval history: S: He was doing well except still vomiting this morning. He denies any abdominal pain. He has been NPO since yesterday. He was sodium is improving. O: VSS NAD, alert and oriented. Fluent speech. Lungs are clear, normal rate and effort. Heart is regular, no murmur gallop or rub. Abdomen is soft, non distended. Extremities are free of edema. Na 121, Cl 88 Bili 2.3 Mg Pend A/P: 1. Hypovolemic hyponatremia, active. 2. Pancreatitis, active. 3. Ascites, active. 4. Severe leukocytosis without evidence of infection, likely Re active 2 pancreatitis. Active. Chronic medical problems include hypertension, obesity class 2, and depression, psychosis with auditory hallucinations. PLAN: -Increase NS to 125/hr. -replete magnesium as needed. -blood cultures pending. -monitor for fever -Empiric Abx. -monitor calcium -monitor CBC -Continue NPO Patient was full resuscitation Mother is proxy Anticipate over 2 midnights in the hospital, supports inpatient status. Exam Vital Signs (past 8 hours): - 06/30/25 01:00 06/30/25 02:00 06/30/25 03:00 Temperature Pulse Rate 105 H 102 H 100 H Respiratory Rate 28 H 19 19 Blood Pressure 152/72 H 143/70 H 130/65 Pulse Oximetry 94 93 93 Oxygen Flow Rate 1 1 1 06/30/25 04:00 06/30/25 05:00 06/30/25 06:00 Temperature 98.7 F Pulse Rate 68 67 95 H Respiratory Rate 21 18 22 Blood Pressure 108/55 L 123/60 125/71 Pulse Oximetry 94 94 92 Oxygen Flow Rate 1 Oxygen Delivery Method Nasal Cannula Oxygen Flow Rate 1 Objective Labs 06/29/25 09:25 06/30/25 06:15 Labs: Laboratory Results - last 24 hr 06/29/25 06/29/25 06/29/25 09:02 09: 13:56 WBC 29.3 H RBC 5.50 Hgb 15.8 Hct 44.5 MCV 80.8 MCH 28.7 MCHC 35.5 RDW 13.8 Plt Count 262 Neut % (Auto) Not Reportable Lymph % (Auto) Not Reportable [place] % (Auto) Not Reportable Eos % (Auto) Not Reportable Baso % (Auto) Not Reportable Lymph # (Auto) Not Reportable [place] # (Auto) Not Reportable Baso # (Auto) Not Reportable Total Counted 100 Seg Neutrophils % 76.0 H Band Neutrophils % 10.0 H Lymphocytes % (Manual) 8.0 L Monocytes % (Manual) 6.0 Neutrophils # (Manual) 59878 H RBC Morphology Normal morphology Sodium 114 L* Potassium 3.6 Chloride 81 L Carbon Dioxide 21 L BUN 18 Creatinine 1.13 Estimated GFR > 60 BUN/Creatinine Ratio 15.9 Glucose 140 H Calcium 7.5 L Magnesium 1.1 L Total Bilirubin 2.8 H Conjugated Bilirubin Unconjugated Bilirubin AST 35 ALT 30 Alkaline Phosphatase 67 Total Protein 7.8 Albumin 4.2 Globulin 3.6 Albumin/Globulin Ratio 1.2 Lipase 376 H Urine Color [place] Urine Appearance Clear Urine pH 6.5 Ur Specific [place] 1.010 Urine Protein 2+ H Urine Glucose (UA) Negative Urine Ketones 2+ H Urine Occult Blood 2+ H Urine Nitrate Negative Urine Bilirubin Negative Urine Urobilinogen 1.0 Ur Leukocyte Esterase Negative Urine RBC 1-5/hpf Urine WBC None seen Ur Squamous Epith Cells 0-1 /hpf Urine Bacteria Few (2-10) H Urine Sperm Few Ur Culture Indicated? Cult not indicated Vol Urine Centrifuged 10ml (spun) Nasal Screen MRSA (PCR) Ethyl Alcohol < 10 06/29/25 06/29/25 06/29/25 14:00 17:03 18:00 WBC RBC Hgb Hct MCV MCH MCHC RDW Plt Count Neut % (Auto) Lymph % (Auto) [place] % (Auto) Eos % (Auto) Baso % (Auto) Lymph # (Auto) [place] # (Auto) Baso # (Auto) Total Counted Seg Neutrophils % Band Neutrophils % Lymphocytes % (Manual) Monocytes % (Manual) Neutrophils # (Manual) RBC Morphology Sodium 116 L* 117 L* Potassium 3.7 3.5 Chloride 81 L 83 L Carbon Dioxide 21 L 20 L BUN 17 16 Creatinine 1.10 1.02 Estimated GFR > 60 > 60 BUN/Creatinine Ratio 15.5 15.7 Glucose 138 H 125 H Calcium 7.6 L 7.5 L Magnesium 2.6 H 2.3 Total Bilirubin Conjugated Bilirubin Unconjugated Bilirubin AST ALT Alkaline Phosphatase Total Protein Albumin Globulin Albumin/Globulin Ratio Lipase Urine Color Urine Appearance Urine pH Ur Specific [place] Urine Protein Urine Glucose (UA) Urine Ketones Urine Occult Blood Urine Nitrate Urine Bilirubin Urine Urobilinogen Ur Leukocyte Esterase Urine RBC Urine WBC Ur Squamous Epith Cells Urine Bacteria Urine Sperm Ur Culture Indicated? Vol Urine Centrifuged Nasal Screen MRSA (PCR) Not detected Ethyl Alcohol 06/29/25 06/30/25 06/30/25 22:00 01:00 06:15 WBC RBC Hgb Hct MCV MCH MCHC RDW Plt Count Neut % (Auto) Lymph % (Auto) [place] % (Auto) Eos % (Auto) Baso % (Auto) Lymph # (Auto) [place] # (Auto) Baso # (Auto) Total Counted Seg Neutrophils % Band Neutrophils % Lymphocytes % (Manual) Monocytes % (Manual) Neutrophils # (Manual) RBC Morphology Sodium 118 L* 119 L* 121 L Potassium 3.4 3.4 3.4 Chloride 85 L 85 L 88 L Carbon Dioxide 23 23 23 BUN 16 16 16 Creatinine 1.03 1.05 1.02 Estimated GFR > 60 > 60 > 60 BUN/Creatinine Ratio 15.5 15.2 15.7 Glucose 127 H 129 H 124 H Calcium 7.5 L 7.7 L 7.7 L Magnesium Total Bilirubin 2.3 H Conjugated Bilirubin 0.0 Unconjugated Bilirubin 1.3 H AST 28 ALT 23 Alkaline Phosphatase 74 Total Protein 6.1 L Albumin 3.3 L Globulin 2.8 Albumin/Globulin Ratio 1.2 Lipase Urine Color Urine Appearance Urine pH Ur Specific [place] Urine Protein Urine Glucose (UA) Urine Ketones Urine Occult Blood Urine Nitrate Urine Bilirubin Urine Urobilinogen Ur Leukocyte Esterase Urine RBC Urine WBC Ur Squamous Epith Cells Urine Bacteria Urine Sperm Ur Culture Indicated? Vol Urine Centrifuged Nasal Screen MRSA (PCR) Ethyl Alcohol PFSH Medical History Primary hypertension Substance abuse Family History Brother Diabetes mellitus Social History household members: family Smoking Status: Unknown if ever smoked alcohol intake: never Assessment & Plan Time-Based Coding :: [TOTAL MINUTES] spent with patient and on the chart (including review of chart, obtaining history, exam, reviewing outside data, placing orders, documenting exam and treatment plan, and counseling patient) on [DATE]. Quality VTE Deep Vein Thrombosis/Pulmonary Embolism Present on Admission: No
[2025-06-30] MEDS: POTASSIUM CHLORIDE IN WATER 10 MEQ/100 ML PIGGYBACK 100 MEQ IV ×2 (08:23→09:34)
[2025-06-30] MEDS: ONDANSETRON 4 MG/2 ML INJ IV ×2 (08:33→20:11)
[2025-06-30] MEDS: SODIUM CHLORIDE 0.9% 1,000 ML 125 ML IV ×2 (09:37→17:46)
[2025-06-30 10:29] LABS: Blood Urea Nitrogen 16 mg/dL (9-20); Calcium 7.6 mg/dL (8.4-10.2); Carbon Dioxide 22 mmol/L (22-32); Chloride 90 mmol/L (98-107); Estimated Glomerular Filt Rate > 60 mL/min (>60); Glucose 120 mg/dL (70-99); HEMOLYSIS 18 (0-50); Potassium 3.8 mmol/L (3.4-5.1); Sodium 120 mmol/L (137-145)
--- NOTE | 2025-06-30 11:52 | CM.DANOTE ---
B DCP Assessment note pt is a 45yo M here with pancreatitis/hyponatremia (sodium of 116 on admission). 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 pt followed by hospitalist but PCP is Dr. Cindy Mcknight made aware. per chart review/provider/RN report, pt vomiting for a few days prior to admission. per provider here for a few days IV abx and to rebalance elecrolytes. per RN, hx of auditory hallucinations. managed by provider at [facility]. flat affect (what is baseline and what is due to being sick?). per RN/chart, pt lives with mom here in [place]. works for [employer]? may need work excuse note. no other obvious DCP needs identified at this time. did not meet with pt due to him actively dry heaving in room during attempted DCP assessment. P: anticipate dc home in a few days when stable. home with mom support and OP f/u as needed. potential need for work excuse letter. 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 No History Provided By Patient Prior Living House Arrangements Household Members family Is patient alert and Yes oriented? Discharge Plan Home Referrals Initiated None needed Review Status In Process Please Provide Date 06/30/25 Initial DC Assessment Was Performed Next Review Type Continued Stay Review
[2025-06-30 14:07] LABS: Cholesterol 128 mg/dL (140-199); HDL Cholesterol 20 mg/dL (40-60); Triglycerides 127 mg/dL (35-150)
[2025-06-30] MEDS: METOCLOPRAMIDE 10 MG/2 ML INJ 5 MG IV (15:18)
[2025-06-30 18:19] LABS: Hematocrit 40.4 % (41-53); Hemoglobin 14.1 g/dL (13.5-17.5); Mean Corpuscular HGB Conc 34.9 % (30-36); Mean Corpuscular Hemoglobin 28.6 PG (26-34); Mean Corpuscular Volume 82.1 fL (80-100); Platelet Count 284 X10^3/uL (150-400)
[2025-06-30 18:21] LABS: Magnesium 2.6 mg/dL (1.6-2.3)
[2025-06-30 18:22] LABS: Blood Urea Nitrogen 17 mg/dL (9-20); Calcium 7.9 mg/dL (8.4-10.2); Carbon Dioxide 21 mmol/L (22-32); Chloride 91 mmol/L (98-107); Estimated Glomerular Filt Rate > 60 mL/min (>60); Glucose 116 mg/dL (70-99); HEMOLYSIS < 15 (0-50); Potassium 3.5 mmol/L (3.4-5.1); Sodium 124 mmol/L (137-145)
[2025-06-30 18:23] LABS: Add Manual Diff / Slide Review YES
[2025-06-30 18:37] LABS: Atypical Lymphocytes Percent 1.0 %; Band Neutrophils Percent 5.0 % (3-7); Lymphocytes Percent Manual 4.0 % (25-45); Monocytes Percent Manual 10.0 % (2-11); Neutrophils Absolute Manual 18445 /uL (3000-5900); Segmented Neutrophils Percent 80.0 % (38-70); Total Cells Counted 100
[2025-06-30 18:38] LABS: RBC Morphology Normal Morphology; Toxic Vacuolation Present
[2025-06-30] MEDS: PANTOPRAZOLE 40 MG VIAL IV (22:50)
[2025-07-01] VITALS (9 sets, daily range): BP systolic 130–156; BP diastolic 66–85; PULSE 83–96; RESP 18–35; TEMP 36.3–36.9; O2SAT 92–98
[2025-07-01 01:03] LABS: Blood Urea Nitrogen 16 mg/dL (9-20); Calcium 7.5 mg/dL (8.4-10.2); Carbon Dioxide 24 mmol/L (22-32); Chloride 92 mmol/L (98-107); Estimated Glomerular Filt Rate > 60 mL/min (>60); Glucose 124 mg/dL (70-99); HEMOLYSIS < 15 (0-50); Potassium 3.4 mmol/L (3.4-5.1); Sodium 124 mmol/L (137-145)
[2025-07-01] MEDS: SODIUM CHLORIDE 0.9% 1,000 ML 125 ML IV ×3 (01:42→17:42)
[2025-07-01 06:26] LABS: Alanine Aminotransferase 28 IU/L (<50); Albumin 2.9 g/dL (3.5-5.0); Albumin Globulin Ratio 1.1 (1.0-2.8); Alkaline Phosphatase 71 U/L (38-126); Globulin 2.6 g/dL (1.7-4.1); HEMOLYSIS < 15 (0-50); Total Protein 5.5 g/dL (6.3-8.2)
[2025-07-01 06:28] LABS: Magnesium 2.5 mg/dL (1.6-2.3)
[2025-07-01] MEDS: PIPERACILLIN/TAZO 3.375 GM in SODIUM CHLORIDE 0.9% 100 ML IV ×3 (06:35→23:42)
[2025-07-01 06:59] LABS: Blood Urea Nitrogen 16 mg/dL (9-20); Calcium 7.7 mg/dL (8.4-10.2); Carbon Dioxide 23 mmol/L (22-32); Chloride 95 mmol/L (98-107); Estimated Glomerular Filt Rate > 60 mL/min (>60); Glucose 114 mg/dL (70-99); HEMOLYSIS < 15 (0-50); Potassium 3.5 mmol/L (3.4-5.1); Sodium 126 mmol/L (137-145)
--- NOTE | 2025-07-01 07:31 | PM.PN.1 ---
Subjective Subjective Interval history: S: He was doing a little bit better, he was eating jello today in his more hungry. No abdominal pain. His sodium is improved. O: VSS NAD, alert and oriented. Fluent speech. Lungs are clear, normal rate and effort. Heart is regular, no murmur gallop or rub. Abdomen is soft, non distended. Extremities are free of edema. Na 126, Mg 2.5. Bili 2.5. A/P: 1. Hypovolemic hyponatremia, active. 2. Pancreatitis, active. 3. Ascites, active. 4. Severe leukocytosis without evidence of infection, likely Re active 2 pancreatitis. Active. Chronic medical problems include hypertension, obesity class 2, and depression, psychosis with auditory hallucinations. PLAN: -Continue NS to 125/hr. -replete magnesium as needed. -blood cultures pending. -monitor for fever -Continue Abx. -monitor calcium -monitor CBC -Full liquid diet -Start PO Meds. Patient was full resuscitation Mother is proxy Anticipate over 2 midnights in the hospital, supports inpatient status. Exam Vital Signs (past 8 hours): - 07/01/25 00:00 07/01/25 01:00 07/01/25 02:00 Temperature 97.4 F L Pulse Rate 85 83 Respiratory Rate 18 18 Blood Pressure 139/81 Pulse Oximetry 95 95 Oxygen Delivery Method Oxygen Flow Rate 2 2 07/01/25 04:00 07/01/25 04:30 07/01/25 04:56 Temperature 97.7 F Pulse Rate 89 Respiratory Rate 18 Blood Pressure 146/82 H Pulse Oximetry 96 Oxygen Delivery Method Nasal Cannula Oxygen Flow Rate 2 Oxygen Delivery Method Nasal Cannula Oxygen Flow Rate 2 Objective Labs 06/30/25 18:00 07/01/25 06:00 Labs: Laboratory Results - last 24 hr 06/30/25 06/30/25 06/30/25 06:15 10:08 18:00 WBC 21.7 H RBC 4.92 Hgb 14.1 Hct 40.4 L MCV 82.1 MCH 28.6 MCHC 34.9 RDW 13.9 Plt Count 284 Neut % (Auto) Not Reportable Lymph % (Auto) Not Reportable [place] % (Auto) Not Reportable Eos % (Auto) Not Reportable Baso % (Auto) Not Reportable Lymph # (Auto) Not Reportable [place] # (Auto) Not Reportable Baso # (Auto) Not Reportable Total Counted 100 Seg Neutrophils % 80.0 H Band Neutrophils % 5.0 Lymphocytes % (Manual) 4.0 L Atypical Lymphs % 1.0 H Monocytes % (Manual) 10.0 Neutrophils # (Manual) 88194 H Toxic Vacuolation Present H Plt Morphology Comment RBC Morphology Normal morphology Sodium 120 L 124 L Potassium 3.8 3.5 Chloride 90 L 91 L Carbon Dioxide 22 21 L BUN 16 17 Creatinine 0.97 1.09 Estimated GFR > 60 > 60 BUN/Creatinine Ratio 16.5 15.6 Glucose 120 H 116 H Calcium 7.6 L 7.9 L Magnesium 2.6 H Total Bilirubin Conjugated Bilirubin Unconjugated Bilirubin AST ALT Alkaline Phosphatase Total Protein Albumin Globulin Albumin/Globulin Ratio Triglycerides 127 Cholesterol 128 L LDL Cholesterol, Calc 83 HDL Cholesterol 20 L 07/01/25 07/01/25 00:45 06:00 WBC RBC Hgb Hct MCV MCH MCHC RDW Plt Count Neut % (Auto) Lymph % (Auto) [place] % (Auto) Eos % (Auto) Baso % (Auto) Lymph # (Auto) [place] # (Auto) Baso # (Auto) Total Counted Seg Neutrophils % Band Neutrophils % Lymphocytes % (Manual) Atypical Lymphs % Monocytes % (Manual) Neutrophils # (Manual) Toxic Vacuolation Plt Morphology Comment RBC Morphology Sodium 124 L 126 L Potassium 3.4 3.5 Chloride 92 L 95 L Carbon Dioxide 24 23 BUN 16 16 Creatinine 0.98 0.96 Estimated GFR > 60 > 60 BUN/Creatinine Ratio 16.3 16.7 Glucose 124 H 114 H Calcium 7.5 L 7.7 L Magnesium 2.5 H Total Bilirubin 2.5 H Conjugated Bilirubin 0.1 Unconjugated Bilirubin 1.1 AST 23 ALT 28 Alkaline Phosphatase 71 Total Protein 5.5 L Albumin 2.9 L Globulin 2.6 Albumin/Globulin Ratio 1.1 Triglycerides Cholesterol LDL Cholesterol, Calc HDL Cholesterol [facility] Medical History Primary hypertension Substance abuse Family History Brother Diabetes mellitus Social History household members: family Smoking Status: Unknown if ever smoked alcohol intake: never Assessment & Plan Time-Based Coding :: [TOTAL MINUTES] spent with patient and on the chart (including review of chart, obtaining history, exam, reviewing outside data, placing orders, documenting exam and treatment plan, and counseling patient) on [DATE]. Quality VTE Deep Vein Thrombosis/Pulmonary Embolism Present on Admission: No
[2025-07-01] MEDS: POTASSIUM CHLORIDE IN WATER 10 MEQ/100 ML PIGGYBACK 100 MEQ IV ×2 (10:42→11:49)
[2025-07-01] MEDS: METOCLOPRAMIDE 10 MG/2 ML INJ 5 MG IV (11:06)
--- NOTE | 2025-07-01 11:31 | CM.DPNOTE ---
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 per RN, less vomiting. improved since yesterday. no new needs likely. will f/u about a work excuse note if needed p: dc home with mom support and OP f/u. no CM needs likely. will continue to follow should any arise STERLING Escobar
[2025-07-01 13:06] LABS: Blood Urea Nitrogen 15 mg/dL (9-20); Calcium 7.9 mg/dL (8.4-10.2); Carbon Dioxide 22 mmol/L (22-32); Chloride 95 mmol/L (98-107); Estimated Glomerular Filt Rate > 60 mL/min (>60); Glucose 108 mg/dL (70-99); HEMOLYSIS < 15 (0-50); Potassium 3.6 mmol/L (3.4-5.1); Sodium 127 mmol/L (137-145)
[2025-07-01] MEDS: PANTOPRAZOLE 40 MG VIAL IV (20:47)
[2025-07-02] VITALS: BP 143/69; PULSE 92; RESP 18; O2SAT 93
--- NOTE | 2025-07-02 | DI.CT.S_ITS ---
PROCEDURE: CT ABDOMEN PELVIS W CON INDICATIONS: Pancreatitis TECHNIQUE: After the administration of intravenous contrast, axial sections acquired from the lung bases to the pubic symphysis. Coronal and sagittal reformats were performed. For radiation dose reduction, the following was used: automated exposure control, adjustment of mA and/or kV according to patient size. COMPARISON: [facility], CT, CT ABDOMEN PELVIS W CON, 06/29/2025, 9:18. FINDINGS: Image quality: Diagnostic. Lower Chest: Slight interval increase in bilateral pleural effusions, mild to moderate, with compressive bibasilar atelectasis. Mild pericardial effusion. ABDOMEN: Liver: No solid mass. Gallbladder: No radiopaque gallstones or wall thickening. Biliary ducts: No biliary dilation. Pancreas: Again noted is changes of acute pancreatitis involving the distal body and tail of the pancreas. The amount of edema involving the distal body and tail is similar, with increased localize peripancreatic fluid. The amount of free fluid in the pelvis is somewhat diminished. No free air or abscess cavity or pseudocyst formation is noted. No evidence of pancreatic necrosis. Spleen: Size is within normal limits. Adrenal Glands: No adrenal nodules. Kidneys and Ureters: No hydronephrosis. No solid mass. No complex renal cystic lesion which requires follow up. Stomach and Bowel: Most of the small bowel is nondilated, measuring up to 4.2 cm in diameter. Consider ileus versus distal small bowel obstruction. Peritoneum: No abnormal intraperitoneal fluid. No free air. Ventral Wall: No significant ventral hernia. Abdominal Nodes: No retroperitoneal or mesenteric adenopathy by size criteria. Vessels: Aorta and inferior vena cava are normal in size. PELVIS: Pelvic Organs: Unremarkable. Bladder: No bladder wall thickening, accounting for underdistention. Pelvic Nodes: No enlarged lymph nodes. Miscellaneous: No inguinal hernias are seen. Bones: No aggressive osseous abnormality. IMPRESSION: 1. Severe episode of acute pancreatitis involving the distal body and tail of the pancreas is again noted. 2. Interval decrease in the amount of inflammatory ascites. 3. Development of dilated small bowel loops, either representing ileus pattern or distal small bowel obstruction. 4. Slight interval increase in bilateral pleural effusions, mild to moderate, with bibasilar atelectasis. Dictated by: Kyler Root M.D. on 07/02/2025 at 10:51 Approved by: Kyler Root M.D. on 07/02/2025 at 10:56
[2025-07-02] MEDS: SODIUM CHLORIDE 0.9% 1,000 ML 125 ML IV ×3 (01:36→21:06)
[2025-07-02 04:00] VITALS: BP 139/66; PULSE 91; RESP 20; O2SAT 95
--- NOTE | 2025-07-02 06:38 | PC.NURSE ---
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
[2025-07-02 06:51] LABS: Hematocrit 36.1 % (41-53); Hemoglobin 12.5 g/dL (13.5-17.5); Mean Corpuscular HGB Conc 34.7 % (30-36); Mean Corpuscular Hemoglobin 28.6 PG (26-34); Mean Corpuscular Volume 82.4 fL (80-100); Platelet Count 239 X10^3/uL (150-400)
[2025-07-02 07:00] LABS: Magnesium 2.2 mg/dL (1.6-2.3)
[2025-07-02 07:02] LABS: Alanine Aminotransferase 44 IU/L (<50); Albumin 3.2 g/dL (3.5-5.0); Albumin Globulin Ratio 1.1 (1.0-2.8); Alkaline Phosphatase 83 U/L (38-126); Blood Urea Nitrogen 12 mg/dL (9-20); Calcium 7.8 mg/dL (8.4-10.2); Carbon Dioxide 24 mmol/L (22-32); Chloride 95 mmol/L (98-107); Estimated Glomerular Filt Rate > 60 mL/min (>60); Globulin 3.0 g/dL (1.7-4.1); Glucose 108 mg/dL (70-99); HEMOLYSIS < 15 (0-50); Potassium 3.2 mmol/L (3.4-5.1); Sodium 128 mmol/L (137-145); Total Protein 6.2 g/dL (6.3-8.2)
--- NOTE | 2025-07-02 07:41 | P.PN_ITS ---
Subjective Subjective Interval history: S: O: VSS NAD, alert and oriented. Fluent speech. Lungs are clear, normal rate and effort. Heart is regular, no murmur gallop or rub. Abdomen is soft, non distended. Extremities are free of edema. A/P: 1. Hypovolemic hyponatremia, active. 2. Pancreatitis, active and improving. 3. Ascites, active. 4. Severe leukocytosis without evidence of infection, likely Re active 2 pancreatitis. Improved. 5. Elevated bili, active. Chronic medical problems include hypertension, obesity class 2, and depression, psychosis with auditory hallucinations. PLAN: -Repeat CT AP. -Continue saline -replace potassium -Liquid diet. Exam Vital Signs (past 8 hours): - 07/02/25 00:00 07/02/25 04:00 Pulse Rate 92 H 91 H Respiratory Rate 18 20 Blood Pressure 143/69 H 139/66 Pulse Oximetry 93 95 Oxygen Flow Rate 0 0 Oxygen Delivery Method Room Air,Nasal Cannula Oxygen Flow Rate 0 Objective Labs 07/02/25 06:15 07/02/25 06:15 Labs: Laboratory Results - last 24 hr 07/01/25 07/02/25 12:28 06:15 WBC 18.5 H RBC 4.38 L Hgb 12.5 L Hct 36.1 L MCV 82.4 MCH 28.6 MCHC 34.7 RDW 14.1 Plt Count 239 Sodium 127 L 128 L Potassium 3.6 3.2 L Chloride 95 L 95 L Carbon Dioxide 22 24 BUN 15 12 Creatinine 0.92 0.88 Estimated GFR > 60 > 60 BUN/Creatinine Ratio 16.3 13.6 Glucose 108 H 108 H Calcium 7.9 L 7.8 L Magnesium 2.2 Total Bilirubin 3.0 H AST 28 ALT 44 Alkaline Phosphatase 83 Total Protein 6.2 L Albumin 3.2 L Globulin 3.0 Albumin/Globulin Ratio 1.1 [facility] Medical History Primary hypertension Substance abuse Family History Brother Diabetes mellitus Social History household members: family Smoking Status: Unknown if ever smoked alcohol intake: never Assessment & Plan Time-Based Coding :: [TOTAL MINUTES] spent with patient and on the chart (including review of chart, obtaining history, exam, reviewing outside data, placing orders, documenting exam and treatment plan, and counseling patient) on [DATE]. Quality VTE Deep Vein Thrombosis/Pulmonary Embolism Present on Admission: No
--- NOTE | 2025-07-02 07:44 | DI.US.S_ITS ---
PROCEDURE: US ABDOMEN LIMITED INDICATIONS: ELEVATED BILIRUBIN TECHNIQUE: Real-time scanning was performed of the abdominal and retroperitoneal organs, with image documentation. COMPARISON: [facility], CT, CT ABDOMEN PELVIS W CON, 07/02/2025, 10:37. FINDINGS: Liver: Poor visualization due to significant acoustic attenuation and bowel gas. Liver is diffusely increased in echogenicity. Gallbladder: Not well evaluated. No gallstones are seen. Gallbladder wall is borderline in thickness. Biliary ducts: Intrahepatic and extrahepatic bile ducts are not well visualized. Pancreas: Not well visualized. Miscellaneous: No definite right upper quadrant free fluid identified. IMPRESSION: 1. Technically limited exam with poor visualization of right upper quadrant structures. 2. No gallstones identified. Borderline gallbladder wall thickening is nonspecific. 3. Diffusely increased hepatic echogenicity is nonspecific, but most commonly encountered in the setting of hepatic steatosis. However, other causes of hepatocellular disease are not excluded. Recommend clinical correlation. Approved by: Brody Caro M.D. on 07/02/2025 at 11:11
[2025-07-02 08:00] VITALS: BP 145/70; PULSE 88; RESP 33; TEMP 36.6; O2SAT 94
[2025-07-02] MEDS: PIPERACILLIN/TAZO 3.375 GM in SODIUM CHLORIDE 0.9% 100 ML IV ×3 (08:02→23:04)
[2025-07-02] MEDS: POTASSIUM CHLORIDE IN WATER 10 MEQ/100 ML PIGGYBACK 100 MEQ IV ×4 (08:55→13:14)
--- NOTE | 2025-07-02 12:15 | EKG_ITS ---
[place] [id number] [place] [id number] Test Date: 2025-07-02 Pat Name: Louis Oconnor Department: Room: 230 Gender: Male Django Developer: BEBO : 1980 Requested By: Order Number: [id number] Reading MD: Herrera Mcknight Measurements Intervals [place] Rate: 85 P: 28 TN: 138 QRS: 4 QRSD: 108 T: 130 QT: 382 QTc: 454 Interpretive Statements Normal sinus rhythm ST & T wave abnormality, consider anterolateral ischemia Electronically Signed On 07-02-2025 19:05:18 PST by Herrera Mcknight
--- NOTE | 2025-07-02 12:18 | DI.ECHO.S_ITS ---
[place] [facility] : : [id number] : : [place] : : [id number] : : Phone: [phone] Echocardiogram Report + + :Name: XI BERRY Study Date: 07/02/2025 Height: 76 in : :[facility] ReadingLocation: Weight: 306 lb : : Gender: Male BSA: 2.7 m2 : :: 1980 Age: 45 yrs BP: 152/68 mmHg: :Reason For Study: ABNORMAL EKG : :Ordering Physician: ANGELA, : :MEGAN Nelson Performed By: Angel Pickens : :Referring: MEGAN MILLER : + + Interpretation Summary The study quality was technically difficult. The left ventricle is mildly dilated. The ejection fraction is estimated to be 60-65%. Questionable mid ventricular versus apical hypertrophy. Diastolic parameters suggest probable normal left ventricular diastolic function and normal filling pressures. The left atrium is mildly dilated. The right ventricle is normal in size and function. No significant valvular abnormalities. Pulmonary artery pressures cannot be estimated because of the lack of a measurable TR jet velocity. Despite the use of ultrasound contrast, LV morphology and segmental wall motion is difficult to ascertain. Consider cardiac MRI to further evaluate. Procedure: A two-dimensional transthoracic echocardiogram with color flow and Doppler was performed. A contrast injection of Definity was performed to improve assessment of LV function. The study quality was technically difficult. There is no prior echocardiogram noted for this patient. The patient was in normal sinus rhythm during the exam. Left Ventricle: The left ventricle is mildly dilated. There is no ventricular septal defect visualized. The ejection fraction is estimated to be 60-65%. Questionable mid ventricular versus apical hypertrophy. Diastolic parameters suggest probable normal left ventricular diastolic function and normal filling pressures. Right Ventricle: The right ventricle is normal in size and function. Atria: The left atrium is mildly dilated. Right atrial size is normal. The interatrial septum is not well visualized. Mitral Valve: The mitral valve is normal. There is trace mitral regurgitation. Aortic Valve: The aortic valve opens well. The aortic valve is trileaflet. There is no aortic valve stenosis. No aortic regurgitation is present. Tricuspid Valve: The tricuspid valve leaflets are thin and pliable. No tricuspid regurgitation. Pulmonary artery pressures cannot be estimated because of the lack of a measurable TR jet velocity. Pulmonic Valve: The pulmonic valve is not well visualized. There is no pulmonic valvular regurgitation. Great Vessels: The aortic root is normal size. The dimensions of the ascending aorta are normal. The pulmonary is not well visualized. The inferior vena cava was not visualized. Pericardium/ Pleura There is no pericardial effusion. MMode/2D Measurements & Calculations LVIDd: 6.3 cm LVOT diam: 2.5 cm LVIDs: 3.9 cm Ao root diam: 3.6 cm FS: 38.6 % asc Aorta Diam: 3.2 cm EPSS: 1.1 cm IVSd: 1.3 cm LVPWd: 1.2 cm LV daniel. diameter/BSA (cm/m^2): 2.4 LV sys. diameter/BSA (cm/m^2): 1.5 LA A2 area: 28.4 cm2 RA long axis: 4.8 cm LA A4 area: 26.5 cm2 RA area: 16.9 cm2 LA length (vol): 6.5 cm RA vol: 50.0 ml LA vol: 98.2 ml RA : 18.8 ml/m2 LA vol index: 37.0 ml/m2 RVD1 (basal): 3.5 cm RVD2 (mid): 2.7 cm TAPSE: 2.3 cm Doppler Measurements & Calculations Ao V2 max: 162.9 cm/sec LVOT Max Shaq: 121.9 cm/sec Ao V2 mean: 121.9 cm/sec LV V1 max P.9 mmHg Ao max P.6 mmHg LV V1 VTI: 24.7 cm Ao mean P.5 mmHg JENA(I,D): 4.3 cm2 Ao V2 VTI: 28.3 cm JENA(V,D): 3.7 cm2 sev ratio: 0.87 JENA indexed to BSA (cm^2/m^2): 1.6 MV E max shaq: 65.5 cm/sec PA V2 max: 100.6 cm/sec MV A max shaq: 50.4 cm/sec PA V2 mean: 72.9 cm/sec MV E/A: 1.3 PA mean P.3 mmHg Med Peak E' Shaq: 9.4 cm/sec PA pr(Accel): 43.0 mmHg E/E' med: 6.9 Lat Peak E' Shaq: 10.3 cm/sec E/E' lat: 6.4 E/e' average: 6.7 MV dec time: 0.18 sec SV(LVOT): 122.7 ml Reading Physician:07:13 PM
--- NOTE | 2025-07-02 12:43 | CM.DPNOTE ---
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 another two days at the least anticipated. redo CT of pancreas. no new DCP needs identified at this time P: Dc home in two days with mom support and OP f/u as needed. no identified barriers to safe dc home at this time will continue to follow should any DCP needs arise STERLING Escobar
[2025-07-02 13:00] VITALS: BP 152/68; PULSE 93; RESP 26; O2SAT 98
[2025-07-02] MEDS: CALCIUM GLUCONATE 9.3 MEQ in SODIUM CHLORIDE 0.9% 50 ML 140 MEQ IV (13:05)
[2025-07-02 13:32] LABS: Calcium 8.1 mg/dL (8.4-10.2); Magnesium 2.2 mg/dL (1.6-2.3)
[2025-07-02 13:44] LABS: Troponin I 0.027 ng/mL (0.01-0.034)
[2025-07-02 17:00] VITALS: BP 153/75; PULSE 95; RESP 26
[2025-07-02 20:38] VITALS: BP 160/85; PULSE 90; RESP 18; TEMP 36.8; O2SAT 93
[2025-07-03] VITALS: BP 157/89; PULSE 83; RESP 18; TEMP 36.6; O2SAT 95
[2025-07-03 04:00] VITALS: BP 149/82; PULSE 87; RESP 20; TEMP 36.4; O2SAT 94
[2025-07-03] MEDS: SODIUM CHLORIDE 0.9% 1,000 ML 125 ML IV ×3 (04:33→19:35)
[2025-07-03] MEDS: PANTOPRAZOLE DR 40 MG TABLET PO (05:08)
[2025-07-03 06:16] LABS: Hematocrit 34.6 % (41-53); Hemoglobin 12.0 g/dL (13.5-17.5); Mean Corpuscular HGB Conc 34.8 % (30-36); Mean Corpuscular Hemoglobin 28.7 PG (26-34); Mean Corpuscular Volume 82.5 fL (80-100); Platelet Count 239 X10^3/uL (150-400)
[2025-07-03] MEDS: PIPERACILLIN/TAZO 3.375 GM in SODIUM CHLORIDE 0.9% 100 ML IV ×3 (06:23→23:03)
[2025-07-03 06:27] LABS: Alanine Aminotransferase 71 IU/L (<50); Albumin 3.0 g/dL (3.5-5.0); Albumin Globulin Ratio 1.0 (1.0-2.8); Alkaline Phosphatase 92 U/L (38-126); Blood Urea Nitrogen 10 mg/dL (9-20); Calcium 7.7 mg/dL (8.4-10.2); Carbon Dioxide 23 mmol/L (22-32); Chloride 99 mmol/L (98-107); Estimated Glomerular Filt Rate > 60 mL/min (>60); Globulin 2.9 g/dL (1.7-4.1); Glucose 97 mg/dL (70-99); HEMOLYSIS < 15 (0-50); Potassium 3.2 mmol/L (3.4-5.1); Sodium 129 mmol/L (137-145); Total Protein 5.9 g/dL (6.3-8.2)
[2025-07-03 08:00] VITALS: BP 158/76; PULSE 90; RESP 34; TEMP 36.2; O2SAT 95
--- NOTE | 2025-07-03 08:06 | P.PN_ITS ---
Subjective Subjective Interval history: S: He feels a little bit better today, not much of an appetite. No abdomen pain. CT of the abdomen yesterday revealed a fairly normal looking gallbladder, no gallstones. He was a decrease in the amount of ascites and persistent pancreatitis of the distal body and tail. He was have evidence of 3rd spacing as well. He was an ileus. He was ECG was abnormal an echo was obtained which was fairly unremarkable. Abdomen ultrasound was difficult to obtain, he does have evidence of hepatosteatosis. O: VSS NAD, alert and oriented. Fluent speech. Lungs are clear, normal rate and effort. Heart is regular, no murmur gallop or rub. Abdomen is soft, non distended. Extremities are with mild edema. IMAGING: CTAP: Gallbladder: Not well evaluated. No gallstones are seen. Gallbladder wall is borderline in thickness. 1. Severe episode of acute pancreatitis involving the distal body and tail of the pancreas is again noted. 2. Interval decrease in the amount of inflammatory ascites. 3. Development of dilated small bowel loops, either representing ileus pattern or distal small bowel obstruction. 4. Slight interval increase in bilateral pleural effusions, mild to moderate, with bibasilar atelectasis. ABD US: 1. Technically limited exam with poor visualization of right upper quadrant structures. 2. No gallstones identified. Borderline gallbladder wall thickening is nonspecific. 3. Diffusely increased hepatic echogenicity is nonspecific, but most commonly encountered in the setting of hepatic steatosis. However, other causes of hepatocellular disease are not excluded. Recommend clinical correlation. ECHO: The study quality was technically difficult. The left ventricle is mildly dilated. The ejection fraction is estimated to be 60-65%. Questionable mid ventricular versus apical hypertrophy. Diastolic parameters suggest probable normal left ventricular diastolic function and normal filling pressures. The left atrium is mildly dilated. The right ventricle is normal in size and function. No significant valvular abnormalities. Pulmonary artery pressures cannot be estimated because of the lack of a measurable TR jet velocity. Despite the use of ultrasound contrast, LV morphology and segmental wall motion is difficult to ascertain. Consider cardiac MRI to further evaluate. ECG: Intervals [place] Rate: 85 P: 28 PA: 138 QRS: 4 QRSD: 108 T: 130 QT: 382 QTc: 454 Interpretive Statements Normal sinus rhythm ST & T wave abnormality, consider anterolateral ischemia A/P: 1. Hypovolemic hyponatremia, active. 2. Pancreatitis, active and improving. 3. Ascites, active. 4. Severe leukocytosis without evidence of infection, likely Re active 2 pancreatitis. Improved. 5. Elevated bili, active. 6. Abnormal ECG relatively normal echo and negative troponins. Likely relates to metabolic imbalances. Chronic medical problems include hypertension, obesity class 2, and depression, psychosis with auditory hallucinations. PLAN: -Continue saline -replace potassium as needed. Monitor tele. -Liquid diet. -we will review as ECG from yesterday and another 1 from today with Cardiology. -we will repeat a troponin today. -Monitor calcium Exam Vital Signs (past 8 hours): - 07/03/25 04:00 Temperature 97.6 F Pulse Rate 87 Respiratory Rate 20 Blood Pressure 149/82 H Pulse Oximetry 94 Oxygen Flow Rate 0 Oxygen Delivery Method Room Air,Nasal Cannula Oxygen Flow Rate 0 Objective Labs 07/03/25 06:10 07/03/25 06:10 Labs: Laboratory Results - last 24 hr 07/02/25 07/03/25 13:10 06:10 WBC 18.5 H RBC 4.19 L Hgb 12.0 L Hct 34.6 L MCV 82.5 MCH 28.7 MCHC 34.8 RDW 14.0 Plt Count 239 Sodium 129 L Potassium 3.2 L Chloride 99 Carbon Dioxide 23 BUN 10 Creatinine 0.83 Estimated GFR > 60 BUN/Creatinine Ratio 12.0 Glucose 97 Calcium 8.1 L 7.7 L Magnesium 2.2 Total Bilirubin 2.3 H AST 40 ALT 71 H Alkaline Phosphatase 92 Troponin I 0.027 Total Protein 5.9 L Albumin 3.0 L Globulin 2.9 Albumin/Globulin Ratio 1.0 [facility] Medical History Primary hypertension Substance abuse Family History Brother Diabetes mellitus Social History household members: family Smoking Status: Unknown if ever smoked alcohol intake: never Assessment & Plan Time-Based Coding :: [TOTAL MINUTES] spent with patient and on the chart (including review of chart, obtaining history, exam, reviewing outside data, placing orders, documenting exam and treatment plan, and counseling patient) on [DATE]. Quality VTE Deep Vein Thrombosis/Pulmonary Embolism Present on Admission: No
[2025-07-03] MEDS: POTASSIUM CHLORIDE 20 MEQ TAB 40 MEQ PO ×2 (08:35→13:58)
[2025-07-03 12:00] VITALS: BP 157/82; PULSE 92; RESP 18; TEMP 36.4; O2SAT 95
[2025-07-03 18:19] VITALS: BP 168/76; PULSE 104; RESP 33; TEMP 36.3; O2SAT 95
[2025-07-03] MEDS: METOPROLOL IR 25 MG TABLET PO (20:12)
[2025-07-04] VITALS: BP 148/74; PULSE 84; RESP 18; TEMP 36.8; O2SAT 93
[2025-07-04] MEDS: SODIUM CHLORIDE 0.9% 1,000 ML 125 ML IV ×2 (03:28→11:42)
[2025-07-04 04:00] VITALS: BP 153/75; PULSE 78; RESP 22; O2SAT 94
[2025-07-04] MEDS: PANTOPRAZOLE DR 40 MG TABLET PO (05:12)
[2025-07-04 06:20] LABS: Blood Urea Nitrogen 9 mg/dL (9-20); Calcium 8.0 mg/dL (8.4-10.2); Carbon Dioxide 21 mmol/L (22-32); Chloride 104 mmol/L (98-107); Estimated Glomerular Filt Rate > 60 mL/min (>60); Glucose 100 mg/dL (70-99); HEMOLYSIS < 15 (0-50); Potassium 3.5 mmol/L (3.4-5.1); Sodium 133 mmol/L (137-145)
[2025-07-04] MEDS: PIPERACILLIN/TAZO 3.375 GM in SODIUM CHLORIDE 0.9% 100 ML IV ×3 (07:59→23:33)
[2025-07-04 08:00] VITALS: BP 147/67; PULSE 80; RESP 18; TEMP 36.3; O2SAT 95
[2025-07-04] MEDS: METOPROLOL IR 25 MG TABLET PO ×2 (08:04→20:26)
--- NOTE | 2025-07-04 08:19 | P.PN_ITS ---
Subjective Subjective Interval history: Summary: He was admitted with pancreatitis. His triglycerides were normal, there was no evidence of gallstones and does not use alcohol. He would significant inflammatory changes and reactive ascites on initial scans. He was slowly improved with NPO status. He was initially quite hyponatremic but has stabilized at about 129. His had hypokalemia that was repleted daily throgh July 03. \a number of his medications are known to have possible causation affect with pancreatitis including hydrochlorothiazide, lisinopril, and olanzapine. S: He feels better. He denies any nausea today, he did eat breakfast. No abdominal pain. Less abdomen distention. O: VSS NAD, alert and oriented. Fluent speech. Lungs are clear, normal rate and effort. Heart is regular, no murmur gallop or rub. Abdomen is soft, less distended and non-tender. Extremities are with mild edema. IMAGING: CTAP: Gallbladder: Not well evaluated. No gallstones are seen. Gallbladder wall is borderline in thickness. 1. Severe episode of acute pancreatitis involving the distal body and tail of the pancreas is again noted. 2. Interval decrease in the amount of inflammatory ascites. 3. Development of dilated small bowel loops, either representing ileus pattern or distal small bowel obstruction. 4. Slight interval increase in bilateral pleural effusions, mild to moderate, with bibasilar atelectasis. ABD US: 1. Technically limited exam with poor visualization of right upper quadrant structures. 2. No gallstones identified. Borderline gallbladder wall thickening is nonspecific. 3. Diffusely increased hepatic echogenicity is nonspecific, but most commonly encountered in the setting of hepatic steatosis. However, other causes of hepatocellular disease are not excluded. Recommend clinical correlation. ECHO: The study quality was technically difficult. The left ventricle is mildly dilated. The ejection fraction is estimated to be 60-65%. Questionable mid ventricular versus apical hypertrophy. Diastolic parameters suggest probable normal left ventricular diastolic function and normal filling pressures. The left atrium is mildly dilated. The right ventricle is normal in size and function. No significant valvular abnormalities. Pulmonary artery pressures cannot be estimated because of the lack of a measurable TR jet velocity. Despite the use of ultrasound contrast, LV morphology and segmental wall motion is difficult to ascertain. Consider cardiac MRI to further evaluate. ECG: Intervals [place] Rate: 85 P: 28 [place]: 138 QRS: 4 QRSD: 108 T: 130 QT: 382 QTc: 454 Interpretive Statements Normal sinus rhythm ST & T wave abnormality, consider anterolateral ischemia A/P: 1. Hypovolemic hyponatremia, improved. 2. Pancreatitis, active and improving. 3. Ascites, improving. 4. Severe leukocytosis without evidence of infection, likely Re active 2 pancreatitis. Improved. 5. Elevated bili, active. 6. Abnormal ECG relatively normal echo and negative troponins. Likely relates to metabolic imbalances. Chronic medical problems include hypertension, obesity class 2, and depression, psychosis with auditory hallucinations. PLAN: -tele. -Stop IVF. -regular diet. Possible DC 07/05. Exam Vital Signs (past 8 hours): - 07/04/25 04:00 07/04/25 07:51 Pulse Rate 78 Respiratory Rate 22 Blood Pressure 153/75 H Pulse Oximetry 94 Oxygen Delivery Method Room Air Oxygen Flow Rate 0 Oxygen Delivery Method Room Air Oxygen Flow Rate 0 Objective Labs 07/03/25 06:10 07/04/25 05:20 Labs: Laboratory Results - last 24 hr 07/04/25 05:20 Sodium 133 L Potassium 3.5 Chloride 104 Carbon Dioxide 21 L BUN 9 Creatinine 0.83 Estimated GFR > 60 BUN/Creatinine Ratio 10.8 Glucose 100 H Calcium 8.0 L PFSH Medical History Primary hypertension Substance abuse Family History Brother Diabetes mellitus Social History household members: family Smoking Status: Unknown if ever smoked alcohol intake: never Assessment & Plan Time-Based Coding :: [TOTAL MINUTES] spent with patient and on the chart (including review of chart, obtaining history, exam, reviewing outside data, placing orders, documenting exam and treatment plan, and counseling patient) on [DATE]. Quality VTE Deep Vein Thrombosis/Pulmonary Embolism Present on Admission: No
[2025-07-04 12:54] VITALS: BP 136/65; PULSE 83; RESP 20; TEMP 36.5; O2SAT 95
[2025-07-04 16:31] VITALS: BP 142/70; PULSE 77; RESP 16; TEMP 36.8; O2SAT 95
[2025-07-04 20:00] VITALS: BP 149/73; PULSE 86; RESP 26; TEMP 36.6; O2SAT 94
[2025-07-05] VITALS (7 sets, daily range): BP systolic 131–159; BP diastolic 61–93; PULSE 76–92; RESP 6–25; TEMP 36.4–37; O2SAT 94–100
[2025-07-05] MEDS: PIPERACILLIN/TAZO 3.375 GM in SODIUM CHLORIDE 0.9% 100 ML IV ×3 (07:37→22:59)
[2025-07-05] MEDS: PANTOPRAZOLE DR 40 MG TABLET PO (07:38)
[2025-07-05] MEDS: METOPROLOL IR 25 MG TABLET PO ×2 (08:22→20:38)
[2025-07-05 09:10] LABS: Add Manual Diff / Slide Review YES; Hematocrit 35.6 % (41-53); Hemoglobin 12.3 g/dL (13.5-17.5); Mean Corpuscular HGB Conc 34.6 % (30-36); Mean Corpuscular Hemoglobin 28.7 PG (26-34); Mean Corpuscular Volume 82.9 fL (80-100); Platelet Count 290 X10^3/uL (150-400)
[2025-07-05 09:20] LABS: Band Neutrophils Percent 4.0 % (3-7); Eosinophils Percent Manual 1.0 % (2-4); Lymphocytes Percent Manual 5.0 % (25-45); Monocytes Percent Manual 4.0 % (2-11); RBC Morphology Normal Morphology; Segmented Neutrophils Percent 86.0 % (38-70); Total Cells Counted 100
[2025-07-05 09:22] LABS: Alanine Aminotransferase 89 IU/L (<50); Albumin 3.0 g/dL (3.5-5.0); Albumin Globulin Ratio 1.0 (1.0-2.8); Alkaline Phosphatase 96 U/L (38-126); Blood Urea Nitrogen 9 mg/dL (9-20); Calcium 8.0 mg/dL (8.4-10.2); Carbon Dioxide 22 mmol/L (22-32); Chloride 105 mmol/L (98-107); Estimated Glomerular Filt Rate > 60 mL/min (>60); Globulin 3.1 g/dL (1.7-4.1); Glucose 114 mg/dL (70-99); HEMOLYSIS < 15 (0-50); Lipase 374 U/L (23-300); Magnesium 1.8 mg/dL (1.6-2.3); Potassium 3.2 mmol/L (3.4-5.1); Sodium 134 mmol/L (137-145); Total Protein 6.1 g/dL (6.3-8.2)
[2025-07-05 09:36] LABS: Troponin I 0.028 ng/mL (0.01-0.034)
[2025-07-05] MEDS: POTASSIUM CHLORIDE 20 MEQ TAB 40 MEQ PO ×2 (10:16→16:07)
--- NOTE | 2025-07-05 12:31 | DIET.CONS ---
Dietary Consultation Note Admission Date: 06/29/2025 11:20 Assessment: 45 y M admitted for hyponatremia and pancreatitis. Dietitian screened for LOS. EMR reviewed. 25-75% PO intakes recorded. DFM reviewed. Pt already getting protein supplementation BID. Ht: 193.04 cm Wt: 139.66 kg BMI: 38.2 UBW: 131-136 kg in past year, ascites noted Last BM: 07/04/25 (07/04/25 16:46) MNA: 12 Tad Score: 22 Diet: 07/03/25 Dinner General (Regular) Diet Diet Modifications: no modifications Food Texture: Level 7 - Regular Liquid Consistency: Level 0 - Thin Nutrition Percent Meal Consumed 25% 07/05/25 11:33 Percent Meal Consumed 75% 07/04/25 18:00 Percent Meal Consumed 25% 07/03/25 18:07 Labs: RBC 4.29 X10^6/uL (4.5-5.9) L 07/05/25 09:04 Hgb 12.3 g/dL (13.5-17.5) L 07/05/25 09:04 Hct 35.6 % (41-53) L 07/05/25 09:04 Creatinine 0.86 mg/dL (0.66-1.25) 07/05/25 09:04 Nutrition Diagnosis: Inadequate oral intakes r/t alterations in GI tract related organs aeb 25-75% PO intakes recorded, clear liquids/NPO for 4 days up until 07/03/25 Interventions: Continue ONS BID EER: [id number] kcals (15 kcals/kg per BMI vs MSJ) 95g protein (18% kcals vs 1 g/kg of adjusted IBW for adult maintenance) Monitoring/Evaluations: PO intakes, ONS tolerance Electronically Signed by: Azul Ellison 07/05/25 12:31 Clinical Dietitian [address] [id number]
--- NOTE | 2025-07-05 12:42 | P.PN_ITS ---
Subjective Subjective Interval history: Summary: It was a pleasant 45-year-old male admitted with pancreatitis and severe hypovolemic hyponatremia. Initial imaging was negative for necrosis or fluid collection. He was no history of alcohol use, no gallstones were identified, and triglycerides are normal. He was treated with IV fluids, saline with good improvement of sodium up to about 128-129. He was abdomen pain and nausea and vomiting have improved. He has been eating for about 2 days. Initial WBC was about 30, it had dropped 18 yesterday but it was 23 today. He was had recurrent hypokalemia requiring replacement. He was on medications for blood pressure and schizophrenia. Several medications including lisinopril, hydrochlorothiazide, and olanzapine our implicated in causing pancreatitis. We had been holding all of his medications other than restarted on olanzapine at a lower dose last night. I discussed this with his PCP, we will substitute a beta kylah for blood pressure and drop olanzapine from 10-5 mg. Telemetry strips changed appearance and an EKG revealed possible U waves. Troponin was unremarkable and an echo with limited views appeared fairly unremarkable. No cardiopulmonary symptoms were reported. 07/04: Eating a regular diet with slow progression. 07/05: WBC 23.3 (18.5 yest, 30 admit), K 3.2, negative blood cx. Lipase 374 (376 on admit). S: Feels better, no abdomen pain, less distention. Small amounts of stool. No nausea, has been eating regular food in small amounts. O: VSS NAD, alert and oriented. Fluent speech. Lungs are clear, normal rate and effort. Heart is regular, no murmur gallop or rub. Abdomen is soft, non distended. Extremities are free of edema. IMAGING: CTAP (Admit): Gallbladder: Not well evaluated. No gallstones are seen. Gallbladder wall is borderline in thickness. 1. Severe episode of acute pancreatitis involving the distal body and tail of the pancreas is again noted. 2. Interval decrease in the amount of inflammatory ascites. 3. Development of dilated small bowel loops, either representing ileus pattern or distal small bowel obstruction. 4. Slight interval increase in bilateral pleural effusions, mild to moderate, with bibasilar atelectasis. ABD US: 1. Technically limited exam with poor visualization of right upper quadrant structures. 2. No gallstones identified. Borderline gallbladder wall thickening is nonspecific. 3. Diffusely increased hepatic echogenicity is nonspecific, but most commonly encountered in the setting of hepatic steatosis. However, other causes of hepatocellular disease are not excluded. Recommend clinical correlation. ECHO: The study quality was technically difficult. The left ventricle is mildly dilated. The ejection fraction is estimated to be 60-65%. Questionable mid ventricular versus apical hypertrophy. Diastolic parameters suggest probable normal left ventricular diastolic function and normal filling pressures. The left atrium is mildly dilated. The right ventricle is normal in size and function. No significant valvular abnormalities. Pulmonary artery pressures cannot be estimated because of the lack of a measurable TR jet velocity. Despite the use of ultrasound contrast, LV morphology and segmental wall motion is difficult to ascertain. Consider cardiac MRI to further evaluate. CTAP (repeat 07/02): 1. Technically limited exam with poor visualization of right upper quadrant structures. 2. No gallstones identified. Borderline gallbladder wall thickening is nonspecific. 3. Diffusely increased hepatic echogenicity is nonspecific, but most commonly encountered in the setting of hepatic steatosis. However, other causes of hepatocellular disease are not excluded. Recommend clinical correlation. ECG: Intervals [place] Rate: 85 P: 28 [place]: 138 QRS: 4 QRSD: 108 T: 130 QT: 382 QTc: 454 Interpretive Statements Normal sinus rhythm ST & T wave abnormality, consider anterolateral ischemia A/P: 1. Hypovolemic hyponatremia, improved. 2. Pancreatitis, active and improving. 3. Ascites, improving. 4. Severe leukocytosis without evidence of infection, likely Re active 2 pancreatitis. Improved. 5. Elevated bili, active. 6. Abnormal ECG relatively normal echo and negative troponins. Likely relates to metabolic imbalances. Chronic medical problems include hypertension, obesity class 2, and depression, psychosis with auditory hallucinations. PLAN: -tele. -regular diet. -monitor WBC, may require another CT scan to rule out fluid collection or necrosis if WBC does not normalize. -start metoprolol for blood pressure, we will permanently stop hydrochlorothiazide and lisinopril. -continue olanzapine at half dose, 5 mg a day. PCP notes the medication as helped him maintain a very long clinical stability. Need another night in the hospital for persistent severe leukocytosis. Exam Vital Signs (past 8 hours): - 07/05/25 07:49 07/05/25 08:00 Temperature 98.6 F Pulse Rate 79 Respiratory Rate 22 Blood Pressure 159/80 H Pulse Oximetry 95 Oxygen Delivery Method Room Air Oxygen Flow Rate 0 Oxygen Delivery Method Room Air Oxygen Flow Rate 0 Objective Labs 07/05/25 09:04 07/05/25 09:04 Labs: Laboratory Results - last 24 hr 07/05/25 09:04 WBC 23.3 H RBC 4.29 L Hgb 12.3 L Hct 35.6 L MCV 82.9 MCH 28.7 MCHC 34.6 RDW 13.9 Plt Count 290 Neut % (Auto) Not Reportable Lymph % (Auto) Not Reportable [place] % (Auto) Not Reportable Eos % (Auto) Not Reportable Baso % (Auto) Not Reportable Lymph # (Auto) Not Reportable [place] # (Auto) Not Reportable Baso # (Auto) Not Reportable Total Counted 100 Seg Neutrophils % 86.0 H Band Neutrophils % 4.0 Lymphocytes % (Manual) 5.0 L Monocytes % (Manual) 4.0 Eosinophils % (Manual) 1.0 L Neutrophils # (Manual) 07685 H RBC Morphology Normal morphology Sodium 134 L Potassium 3.2 L Chloride 105 Carbon Dioxide 22 BUN 9 Creatinine 0.86 Estimated GFR > 60 BUN/Creatinine Ratio 10.5 Glucose 114 H Calcium 8.0 L Magnesium 1.8 Total Bilirubin 0.9 AST 38 ALT 89 H Alkaline Phosphatase 96 Troponin I 0.028 Total Protein 6.1 L Albumin 3.0 L Globulin 3.1 Albumin/Globulin Ratio 1.0 Lipase 374 H [facility] Medical History Primary hypertension Substance abuse Family History Brother Diabetes mellitus Social History household members: family Smoking Status: Unknown if ever smoked alcohol intake: never Assessment & Plan Time-Based Coding :: [TOTAL MINUTES] spent with patient and on the chart (including review of chart, obtaining history, exam, reviewing outside data, placing orders, documenting exam and treatment plan, and counseling patient) on [DATE]. Quality VTE Deep Vein Thrombosis/Pulmonary Embolism Present on Admission: No
[2025-07-06] VITALS: BP 137/74; PULSE 79; RESP 20; TEMP 36.5; O2SAT 97
[2025-07-06 04:00] VITALS: BP 137/82; PULSE 74; RESP 24; TEMP 36.2; O2SAT 94
[2025-07-06 05:12] LABS: Add Manual Diff / Slide Review NO; Hematocrit 35.3 % (41-53); Hemoglobin 12.0 g/dL (13.5-17.5); Lymphocytes Absolute Auto 900 /uL (1100-4500); Mean Corpuscular HGB Conc 34.0 % (30-36); Mean Corpuscular Hemoglobin 28.3 PG (26-34); Mean Corpuscular Volume 83.3 fL (80-100); Platelet Count 288 X10^3/uL (150-400)
[2025-07-06 05:33] LABS: Magnesium 1.8 mg/dL (1.6-2.3)
[2025-07-06] MEDS: PIPERACILLIN/TAZO 3.375 GM in SODIUM CHLORIDE 0.9% 100 ML IV (06:15)
[2025-07-06] MEDS: PANTOPRAZOLE DR 40 MG TABLET PO (06:15)
[2025-07-06] MEDS: METOPROLOL IR 25 MG TABLET PO (08:08)
--- NOTE | 2025-07-06 08:50 | PM.DS.1 ---
History of Present Illness History of Present Illness Date Patient Seen: 07/06/25 Chief complaint: [facility]: vomiting 3days, dehydrated, dark urine Narrative: Chief complaint: Nausea and vomiting dehydration and hyponatremia secondary to pancreatitis idiopathic History of present illness: 06/29: 45-year-old male admitted with pancreatitis and severe hypovolemic hyponatremia. Initial imaging was negative for necrosis or fluid collection. He was no history of alcohol use, no gallstones were identified, and triglycerides are normal. He was treated with IV fluids, saline with good improvement of sodium up to about 128-129. He was abdomen pain and nausea and vomiting have improved. He has been eating for about 2 days. Initial WBC was about 30, it had dropped 18 yesterday but it was 23 today. He was had recurrent hypokalemia requiring replacement. He was on medications for blood pressure and schizophrenia. Several medications including lisinopril, hydrochlorothiazide, and olanzapine our implicated in causing pancreatitis. We had been holding all of his medications other than restarted on olanzapine at a lower dose last night. I discussed this with his PCP, we will substitute a beta kylah for blood pressure and drop olanzapine from 10-5 mg. Telemetry strips changed appearance and an EKG revealed possible U waves. Troponin was unremarkable and an echo with limited views appeared fairly unremarkable. No cardiopulmonary symptoms were reported. 06/29-07/04: Transitioned IV fluids to clear liquids to low-fat diet with slow progression. With correction of hyponatremia 07/05: WBC 23.3 (18.5 yest, 30 admit), K 3.2, negative blood cx. Lipase 374 (376 on admit). S: Feels better, no abdomen pain, less distention. Small amounts of stool. No nausea, has been eating regular food in small amounts. O: VSS NAD, alert and oriented. Fluent speech. Lungs are clear, normal rate and effort. Heart is regular, no murmur gallop or rub. Abdomen is soft, non distended. Extremities are free of edema. IMAGING: CTAP (Admit): Gallbladder: Not well evaluated. No gallstones are seen. Gallbladder wall is borderline in thickness. 1. Severe episode of acute pancreatitis involving the distal body and tail of the pancreas is again noted. 2. Interval decrease in the amount of inflammatory ascites. 3. Development of dilated small bowel loops, either representing ileus pattern or distal small bowel obstruction. 4. Slight interval increase in bilateral pleural effusions, mild to moderate, with bibasilar atelectasis. ABD US: 1. Technically limited exam with poor visualization of right upper quadrant structures. 2. No gallstones identified. Borderline gallbladder wall thickening is nonspecific. 3. Diffusely increased hepatic echogenicity is nonspecific, but most commonly encountered in the setting of hepatic steatosis. However, other causes of hepatocellular disease are not excluded. Recommend clinical correlation. ECHO: The study quality was technically difficult. The left ventricle is mildly dilated. The ejection fraction is estimated to be 60-65%. Questionable mid ventricular versus apical hypertrophy. Diastolic parameters suggest probable normal left ventricular diastolic function and normal filling pressures. The left atrium is mildly dilated. The right ventricle is normal in size and function. No significant valvular abnormalities. Pulmonary artery pressures cannot be estimated because of the lack of a measurable TR jet velocity. Despite the use of ultrasound contrast, LV morphology and segmental wall motion is difficult to ascertain. Consider cardiac MRI to further evaluate. CTAP (repeat 07/02): 1. Technically limited exam with poor visualization of right upper quadrant structures. 2. No gallstones identified. Borderline gallbladder wall thickening is nonspecific. 3. Diffusely increased hepatic echogenicity is nonspecific, but most commonly encountered in the setting of hepatic steatosis. However, other causes of hepatocellular disease are not excluded. Recommend clinical correlation. ECG: Intervals [place] Rate: 85 P: 28 [place]: 138 QRS: 4 QRSD: 108 T: 130 QT: 382 QTc: 454 Interpretive Statements Normal sinus rhythm ST & T wave abnormality, consider anterolateral ischemia A/P: 1. Hypovolemic hyponatremia, improved. 2. Pancreatitis, active and improving. 3. Ascites, improving. 4. Severe leukocytosis without evidence of infection, likely Re active 2 pancreatitis. Improved. 5. Elevated bili, active. 6. Abnormal ECG relatively normal echo and negative troponins. Likely relates to metabolic imbalances. Chronic medical problems include hypertension, obesity class 2, and depression, psychosis with auditory hallucinations. PLAN: -tele. -regular diet. -monitor WBC, may require another CT scan to rule out fluid collection or necrosis if WBC does not normalize. -start metoprolol for blood pressure, we will permanently stop hydrochlorothiazide and lisinopril. -continue olanzapine at half dose, 5 mg a day. PCP notes the medication as helped him maintain a very long clinical stability. Discharge to home Time based billing: Thirty-five minutes were involved this patient [id number] objective laboratory data and discharge planning Discharge Providers Provider Date of admission: 06/29/25 11:20 Discharge Date: 07/06/25 Primary care physician: Dottie Galvan MD Discharge provider: Rodolfo Quiles MD Exam Vital Signs (past 8 hours): - 07/06/25 04:00 07/06/25 07:00 Temperature 97.1 F L Pulse Rate 74 Respiratory Rate 24 Blood Pressure 137/82 Pulse Oximetry 94 Oxygen Delivery Method Room Air Oxygen Flow Rate 0 Oxygen Delivery Method Room Air Oxygen Flow Rate 0 Objective Labs 07/06/25 04:13 07/05/25 09:04 Labs: Laboratory Results - last 24 hr 07/05/25 07/06/25 09:04 04:13 WBC 23.3 H 18.9 H RBC 4.29 L 4.24 L Hgb 12.3 L 12.0 L Hct 35.6 L 35.3 L MCV 82.9 83.3 MCH 28.7 28.3 MCHC 34.6 34.0 RDW 13.9 14.1 Plt Count 290 288 Neut % (Auto) Not Reportable 87.3 H Lymph % (Auto) Not Reportable 4.9 L [place] % (Auto) Not Reportable 5.4 Eos % (Auto) Not Reportable 1.4 L Baso % (Auto) Not Reportable 1.0 Neut # (Auto) 19291 H Lymph # (Auto) Not Reportable 900 L [place] # (Auto) Not Reportable 1000 H Eos # (Auto) 300 Baso # (Auto) Not Reportable 200 H Total Counted 100 Seg Neutrophils % 86.0 H Band Neutrophils % 4.0 Lymphocytes % (Manual) 5.0 L Monocytes % (Manual) 4.0 Eosinophils % (Manual) 1.0 L Neutrophils # (Manual) 48127 H RBC Morphology Normal morphology Sodium 134 L Potassium 3.2 L Chloride 105 Carbon Dioxide 22 BUN 9 Creatinine 0.86 Estimated GFR > 60 BUN/Creatinine Ratio 10.5 Glucose 114 H Calcium 8.0 L Magnesium 1.8 1.8 Total Bilirubin 0.9 AST 38 ALT 89 H Alkaline Phosphatase 96 Troponin I 0.028 Total Protein 6.1 L Albumin 3.0 L Globulin 3.1 Albumin/Globulin Ratio 1.0 Lipase 374 H [facility] Medical History Primary hypertension Substance abuse Family History Brother Diabetes mellitus Social History household members: family Smoking Status: Unknown if ever smoked alcohol intake: never Discharge Plan Discharge Plan Patient Disposition: Home Discharge orders & Medications Prescriptions: New olanzapine 2.5 mg Tablet 5 mg PO BEDTIME Qty: 60 0RF metoprolol tartrate 25 mg Tablet 25 mg PO BID Qty: 60 1RF Continued hydroxyzine pamoate 25 mg capsule 25 mg PO BID buspirone 15 mg tablet 15 mg PO 3XD Qty: 270 1RF trazodone 100 mg tablet See Rx Instructions .ROUTE .COMPLEX Qty: 90 0RF Dose Instruction: TAKE ONE TABLET BY MOUTH NIGHTLY AT BEDTIME Rx Instructions: TAKE ONE TABLET BY MOUTH NIGHTLY AT BEDTIME Discontinued olanzapine 15 mg tablet 15 mg PO ONCE PM fluoxetine 20 mg tablet 20 mg PO DAILY fluoxetine 20 mg capsule See Rx Instructions .ROUTE .COMPLEX Qty: 90 0RF Dose Instruction: TAKE ONE CAPSULE BY MOUTH ONE TIME DAILY Rx Instructions: TAKE ONE CAPSULE BY MOUTH ONE TIME DAILY lisinopril 40 mg tablet See Rx Instructions .ROUTE .COMPLEX Qty: 90 3RF Dose Instruction: TAKE ONE TABLET BY MOUTH ONE TIME DAILY Rx Instructions: TAKE ONE TABLET BY MOUTH ONE TIME DAILY hydrochlorothiazide 25 mg tablet See Rx Instructions .ROUTE .COMPLEX Qty: 90 1RF Dose Instruction: TAKE ONE TABLET BY MOUTH ONE TIME DAILY Rx Instructions: TAKE ONE TABLET BY MOUTH ONE TIME DAILY Follow up/Referrals: Dottie Galvan MD [Primary Care Provider, Family Practice] Visit Report/Discharge Packet Stand Alone Forms: Patient Portal/API, Stroke Signs & Symptoms Discharge Data Primary Care Provider: Dottie Galvan Quality VTE Deep Vein Thrombosis/Pulmonary Embolism Present on Admission: No
[2025-07-06 08:53] VITALS: BP 139/67; PULSE 93; RESP 16; TEMP 36.7; O2SAT 95
--- NOTE | 2025-07-06 15:04 | CM.DPC ---
DCP Discharge Home Per MD, pt tolerating his diet and medically stable to d/c home with outpt f/u and no identified barriers to discharge. Per RN, discharge instructions provided and no concerns noted and pt taken to POV to d/c home today. STERLING Hanna
== END 2025-07-06 12:34 | disposition home or self-care (01) | DRG 426 ==
LOC: ED 11:17 → AC 11:21 → ICU 13:24
PROVIDERS: Admitting Provider Hospitalist; Emergency Provider Emergency Medicine; PCP Family Medicine; Referring Provider Emergency Medicine; Visit Provider Hospitalist
DX: E87.1 Hypo-osmolality and hyponatremia (principal); K85.90 Acute pancreatitis without necrosis or infection, unspecified; E83.51 Hypocalcemia; R18.8 Other ascites; R94.31 Abnormal electrocardiogram [ECG] [EKG]; E87.6 Hypokalemia; E80.6 Other disorders of bilirubin metabolism; F20.9 Schizophrenia, unspecified; I10 Essential (primary) hypertension; E66.812 Obesity, class 2; F32.A Depression, unspecified; R00.0 Tachycardia, unspecified; E83.42 Hypomagnesemia; Z68.37 Body mass index [BMI] 37.0-37.9, adult
CPT/HCPCS: 36415; 74177; 76705; 80048; 80053; 80061; 80076; 80320; 81001; 82310; 83690; 83735; 84484; 85007; 85025; 85027; 87040; 87637; 87797; 93005; 93010; 96361; 96365; 96366; 96375; 99284; 99291; 99292; A9270; C8929; J0612; J2405; J2470; J2543; J2765; J3475; J7030; J7050; J7120; Q9957; Q9967

== ENCOUNTER → 2025-07-10 10:35 | Outpatient (CLI) | payer OTHER, SELFPAY ==
[2025-07-08 12:44] VITALS: BMI 38.2
== END ==
PROVIDERS: PCP Family Medicine; Referring Provider Family Medicine; Visit Provider Family Medicine
DX: I10 Essential (primary) hypertension (principal)
CPT/HCPCS: 36415